=== PATIENT | male | born 1950 | race Caucasian/White ===

== ENCOUNTER 2019-01-26 10:14 | Emergency (ER) | payer MEDICARE ==
--- OUTSIDE RECORDS SUMMARY | 2019-01-26 10:19 | XMS REPORT | Continuity of Care Document ---
:1950 External Reference #:[id number] Author Name Heidi Aviles Care Team Providers Name Role Phone Azar Tang III, MD Primary Care Physician Unavailable Problems Active Problems Provider Date Neurological disorder with type 2 Benjamín Samano M.D.,FACP Onset: 2011 diabetes mellitus Peripheral vascular disease Benjamín Samano M.D.,FACP Onset: 01/16/2010 Tobacco user Benjamín Samano M.D.,FACP Onset: 01/16/2010 Lipoma of skin Benjamín Samano M.D.,FACP Onset: 01/24/2010 Mixed hyperlipidemia Benjamín Samano M.D.,FACP Onset: 08/04/2010 Acute bronchitis Curtis Wheeler M.D. Onset: 04/22/2012 Inactive Problems Type II diabetes mellitus uncontrolled Benjamín Samano M.D.,FACP Onset: Inactive: 01/03/2012 Pure hypercholesterolemia Benjamín Samano M.D.,FACP Onset: 01/24/2010 Inactive: 01/03/2012 Social History Type Date Description Comments Sex Unknown Marital Status Lives With Spouse Occupation Unemployed Cigarette Use Pack Years - 40 Tobacco Use Start: Unknown Current Cigarette Smoker 1 Pack Daily Smoking Status Reviewed: 12/31/18 Current Cigarette Smoker 1 Pack Daily ETOH Use Denies alcohol use Recreational Drug Use Denies Drug Use Tobacco Use Start: Unknown End: Patient is a former smoker quit 2011 Unknown Exercise Type/Frequency Does not exercise Currently Active Patient is currently sexually active Allergies, Adverse Reactions, Alerts Active Allergies Reaction Severity Comments Date Bee Sting 08/04/2009 Medications Active Medications SIG Qnty Indications Ordering Provider Date Novolin N 50 units in a.m. Azar Tang, 12/31/2018 100Unit/ML and 40 units at M.D. Suspension night Novolin R 18 units bid AzarRamsey, 12/31/2018 100Unit/ML M.D. Solution Omeprazole 1 by mouth every 30caps K21.9 Azar Tang, 12/31/2018 40mg day M.D. Capsules DR Everett 1 tab by mouth Unknown 500mg Chewtabs four times a day as needed History Medications Glipizide 1 ab bid 180tabs 250.02 Curtis Wheeler, 04/22/2012 - 10mg M.D. 12/31/2018 Tablets Levaquin 1 po qd 10tabs 466.0 Curtis Wheeler, 04/22/2012 - 500mg M.D. 05/23/2012 Tablets Byetta inject s/c bid, 250.02 Benjamín Cabral 12/26/2011 - 5mcg/0.02ML before morning [facility] 04/22/2012 Solution and evening meals Byetta inject 1 dose 1units 250.02 Benjamín Cabral 12/25/2011 - 10mcg/0.04ML under the skin [facility] Samano,[facility] 12/26/2011 Solution twice daily as directed Novofine [id number] use daily as 100units Benjamín Cabral 12/10/2011 - directed with [facility]cia Samano,[facility] 12/31/2018 30G X 8 mm Sana nye Naproxen 1 po bid prn 60tabs 840.4 Benjamín Cabral 11/22/2011 - 500mg [facility] 07/09/2012 Tablets Cymbalta 1 po qd 30caps 250.62 Benjamín Cabral 08/17/2011 - 60mg Caps Marcia Samano,FACP 07/09/2012 DR Kitty Nye 1.2 mg sc qd 1mon 250.02 Benjamín Cabral 08/17/2011 - 18mg/3ML Marcia Samano,FACP 12/25/2011 Solution Metformin HCL take 1 tablet 60tabs 250.02 Benjamín Cabral 08/17/2011 - twice a day Marcia Samano,[facility] 12/31/2018 1000mg Tablets Cialis qd prn 3tabs 607.84 Benjamín Cabral 11/10/2010 - 10mg Tablets Marcia Samano,[facility] 04/22/2012 Gabapentin Take 1 Cap 3 150caps 250.62 Benjamín Cabral 11/10/2010 - 100mg Times A Day And Marcia Samano,[facility] 08/17/2011 Capsules Take 2 Caps AT Bedtime For 1 Week, Then Take 2 Caps 3 Times A Day And Take 3 Caps AT Bedtime Glyburide take 2 tablet 180tabs 250.02 Benjamín Cabral 08/04/2010 - 2.5mg twice a day Marcia Samano,[facility] 04/22/2012 Tablets Simvastatin take 1 tablet at 90tabs 272.0 Azar Tang, 08/04/2010 - 40mg bedtime Marcia 07/09/2012 Tablets Janumet 1 po bid 60tabs 250.02 Benjamín Cabral 07/14/2010 - 50-1000mg Marcia Samano,[facility] 08/17/2011 Tablets Metformin HCL 1 po bid 60tabs 250.02 Benjamín Cabral 05/26/2010 - Marcia Samano,[facility] 07/14/2010 1000mg Tablets Victoza 0.6 mg sc qd for 1mon Benjamín Cabral 05/26/2010 - 18mg/3ML 1 wk, then 1.2 Marcia Samano,[facility] 07/14/2010 Solution mg qd Novofine [id number] sc bid 60units Benjamín Cabral 05/26/2010 - Marcia Samano,[facility] 07/14/2010 32G X 6 mm [facility] Janumet take 1 tablet 60tabs 250.02 Benjamín Cabral 01/24/2010 - 50-1000mg twice a day Marcia Samano,[facility] 05/26/2010 Tabs Gustabo Microlet qd prn 50units Benjamín Cabral 01/24/2010 - Lancets Marcia Samano,[facility] 12/31/2018 Misc Gustabo Contour Blood qd and prn 50units Benjamín Cabral 01/24/2010 - Glucose Test Strips Marcia Samano,[facility] 12/31/2018 Strips Aspirin 1 po qd 50tabs 250.02 Benjamín Cabral 01/24/2010 - 81mg Marcia Samano,[facility] 12/31/2018 Tablets Bupropion HCL ER po qam for 1 wk, 60tabs 305.1 Benjamín Cabral 01/24/2010 - then qam, qnoon Marcia Samano,[facility] 03/07/2010 150mg Tablets ER 12HR Simvastatin 1 po qpm 90tabs 272.0 Benjamín Cabral 01/24/2010 - 20mg Marcia Samano,[facility] 08/04/2010 Tablets Gabapentin 2 qhs 60caps 250.02 Benjamín Cabral 01/24/2010 - 300mg Marcia Samano,[facility] 03/07/2010 Capsules Gabapentin 1 po QHS 30caps 250.02 Benjamín Cabral 01/16/2010 - 300mg Marcia Samano,[facility] 01/24/2010 Capsules Chantix starter pack as 1mon 305.1 Benjamín Cabral 01/16/2010 - 0.5mg X 11 directed Marcia Samano,[facility] 01/24/2010 & 1 mg X Tablets Lisinopril 1 po qd 30tabs 250.00 Adam, 08/04/2009 - 10mg Marcia Juarez 01/16/2010 Tablets 401.9 Lantus 30 units sq q hs 1monthsu Ann Medina, - 100Unit/ML M.D. 01/16/2010 Solution Humalog sliding scale 10ml Ann Medina, - 100Unit/ML M.D. 01/16/2010 Solution Novolin 70/30 Unknown - 12/31/2018 (70-30)100Unit/ML Suspension Immunizations CPT Code Status Date Vaccine Reaction Lot # [id number] Given 12/31/2018 Pneumococcal Conjugate shot tolerated well, no [id number] Vaccine 13 Valent For immediate reaction Intramuscular Use [id number] Given 08/17/2011 Fluzone Vaccine 40949 Given 05/26/2010 Pneumonia Vaccine [id number] Given 05/09/2010 Influenza Virus 3Yrs & Over Vital Signs Date Vital Result Comment 12/31/2018 10:07am Height 69 inches 5'9" Weight 198.00 lb Heart Rate 100 /min BP Systolic Sitting 151 mmHg BP Diastolic Sitting 79 mmHg BMI (Body Mass Index) 29.2 kg/m2 07/09/2012 4:37pm Height 69 inches 5'9" Weight 169.00 lb Heart Rate 91 /min auto pulse BP Systolic Sitting 152 mmHg auto cuff BP Diastolic Sitting 71 mmHg auto cuff BMI (Body Mass Index) 25.0 kg/m2 04/22/2012 10:47am Height 69.25 inches 5'9.25" Weight 171.00 lb Heart Rate 86 /min BP Systolic Sitting 140 mmHg BP Diastolic Sitting 76 mmHg Body Temperature 97.8 F BMI (Body Mass Index) 25.1 kg/m2 11/22/2011 9:56am Height 69.25 inches 5'9.25" Weight 166.00 lb Heart Rate 90 /min BP Systolic Sitting 126 mmHg BP Diastolic Sitting 74 mmHg BMI (Body Mass Index) 24.3 kg/m2 08/17/2011 9:14am Height 69.25 inches 5'9.25" Weight 167.00 lb Heart Rate 92 /min BP Systolic Sitting 136 mmHg BP Diastolic Sitting 83 mmHg BMI (Body Mass Index) 24.5 kg/m2 11/10/2010 11:54am Weight 174.00 lb Heart Rate 78 /min BP Systolic Sitting 120 mmHg BP Diastolic Sitting 76 mmHg 08/04/2010 10:09am Weight 166.00 lb Heart Rate 82 /min BP Systolic Sitting 114 mmHg BP Diastolic Sitting 74 mmHg 05/26/2010 9:38am Weight 166.00 lb Heart Rate 114 /min BP Systolic Sitting 140 mmHg BP Diastolic Sitting 82 mmHg O2 % BldC Oximetry 97 % 03/07/2010 8:42am Weight 166.00 lb Heart Rate 90 /min BP Systolic Sitting 124 mmHg BP Diastolic Sitting 74 mmHg 01/24/2010 9:38am Heart Rate 76 /min BP Systolic Sitting 132 mmHg BP Diastolic Sitting 70 mmHg 01/16/2010 10:59am Height 70 inches 5'10" Weight 160.00 lb Heart Rate 72 /min BP Systolic Sitting 120 mmHg BP Diastolic Sitting 74 mmHg BMI (Body Mass Index) 23.0 kg/m2 08/04/2009 8:44am Height 70 inches 5'10" Weight 173.00 lb Heart Rate 100 /min BP Systolic Sitting 140 mmHg BP Diastolic Sitting 90 mmHg BMI (Body Mass Index) 24.8 kg/m2 Results Test Date Facility Test Result H/L Range Note Laboratory test 12/31/2018 [employer] In House Hemoglobin A1c 13.4 High 5-7 finding Comp Metabolic 05/23/2012 [facility] Sodium 138 mmol/L 133- [address] [place] [address] [phone] Potassium 4.3 mmol/L 3.5-5.0 Chloride 100 mmol/L Low 101-111 Co2 Carbon Dioxide 31.0 mmol/L 22-32 Anion Gap 7.0 mmol/L 2-11 Glucose 207 mg/dL High 70-100 Blood Urea Nitrogen 8 mg/dL 6-24 Creatinine 0.80 mg/dL 0.50-1.40 BUN/Creatinine Ratio 10.0 8-20 Calcium 9.2 mg/dL 8.1-9.9 Total Protein 6.3 g/dL 6.2-8.1 Albumin 3.8 g/dL 3.6-5.4 Globulin 2.5 g/dL 2-4 Albumin/Globulin Ratio 1.5 1-3 Total Bilirubin 0.8 mg/dL 0.4-1.5 Alkaline Phosphatase 92 U/L 30-110 Alt 52 U/L 14-54 Ast 29 U/L 12-42 Egfr Non- 98.9 >60 Egfr 127.2 >60 1 Lipid Panel - 05/23/2012 [facility] Creatine Kinase 51 U/L 0- [address] [place] [address] [phone] Lipid Profile 05/23/2012 [facility] Triglycerides 206 mg/dL High 40-200 (Trig/Chol/HDL [address] ) [place], [place] [id number] [phone] Cholesterol 206 mg/dL High Less than 200 HDL Cholesterol 28 mg/dL Low 40-60 2 Cholesterol/HDL Ratio 7.4 Average High 1-4.44 LDL Cholesterol 136.8 mg/dL High Less Than 100 3 Urine Microalbumin 04/22/2012 [facility] Ur Microalbumin 161.0 mg/L [address] (Mg/L) [place], [place] [id number] [phone] Urine Creatinine 81.7 mg/dL Urine Microalbumin/Creatinine 197.1 UG/MG High Less Than 31 Laboratory test 04/22/2012 [employer] In House Hemoglobin A1c 9.0 High 5-7 finding Laboratory test 11/22/2011 [employer] Member In House Hemoglobin A1c 7.3 High 5-7 finding Laboratory test 08/17/2011 [employer] Member In House Hemoglobin A1c 8.2 High 5-7 finding Laboratory test 08/04/2010 [employer] Faculty Member In House Hemoglobin A1c 11.0 High 5-7 finding Laboratory test 05/09/2010 [facility] Hemoglobin A1c 10.4 % High Less Than [address] [place] [address] [phone] Lipid Panel - JFM 05/09/2010 [facility] CPK (Creatine 68 U/L 0-[address] Kinase) [place] [address] [phone] Lipid Profile 05/09/2010 [facility] Triglyceride 166 mg/dL 40 -200 (Trig/Chol/HDL) [address] [place] [address] [phone] Cholesterol 160 mg/dL Less Than 200 6 High Density Lipoprotein 30 mg/dL Low 40-60 7 Cholesterol/HDL Ratio 5.33 AVERAGE High 1-4.97 Low Density Lipoprotein 97 mg/dL Less Than 100 8 Comp Metabolic Panel 05/09/2010 [facility] Sodium 136 mmol/L 135-[address] [place] [address] [phone] Potassium 4.2 mmol/L 3.5-5.0 Chloride 101 mmol/L 101-111 Co2 (Carbon Dioxide) 28.0 mmol/L 22-32 Anion Gap 7.0 mmol/L 2-11 9 Glucose 259 mg/dL High 70-100 10 BUN 9 mg/dL 6-24 Creatinine 0.80 mg/dL 0.50-1.40 One Over Creatinine 1.20 BUN/Creatinine Ratio 11.3 8-20 Calcium 9.4 mg/dL 8.1-9.9 Total Protein 6.9 GM/DL 6.2-8.1 Albumin 4.1 GM/DL 3.6-5.4 Globulin 2.8 GM/DL 2-4 Albumin/Globulin Ratio 1.5 1-3 Bilirubin Total 0.9 mg/dL 0.4-1.5 11 Alkaline Phosphatase 94 U/L 39-117 Alt (SGPT) 34 U/L 17-63 Ast (Sgot) 22 U/L 12-42 eGFR Non- 105.9 > 60 eGFR 128.1 > 60 12 CBC With 01/16/2010 [facility] White Blood 6.6 CUMM 4.8-10.8 Electronic Diff [address] [place] [address] [phone] Red Cell Count 6.00 CUMM 4.6-6.2 Hemoglobin 17.9 g/dL 14.0-18.0 Hematocrit 52 % 42-52 Mean Corpuscular Volume 86 um3 80-94 Mean Corpuscular Hemoglob 30 pg 27-31 Mean Corpuscular HGB Cone 35 g/dL 32-36 Redcell Distribution WDTH 13 % 10.5-15 Platelet Count 174 CUMM 150-450 Mean Platelet Volume 7.3 um3 Low 7.4-10.4 Gran % 53.3 % 38-83 Lymph % 40.2 % 25-47 Mononuclear % 5.3 % 1-9 Eosinophil % 0.8 % 0-6 Basophil % 0.4 % 0-2 Abs Lymphs 2.6 1.0-4.8 Abs Mononuclear 0.3 0-0.8 Absolute Neutrophil Count 3.5 1.5-7.7 Abs Eosinophils 0.1 0-0.6 Abs Basophils 0 0-0.2 Urinalysis W/Microscopic 01/16/2010 [facility] Ua Color YELLOW Yellow [address] [place] [address] [phone] Appearance-Urine CLEAR Clear Specific [place]-Ur 1.039 High 1.010-1.030 Esterase-Urine NEGATIVE Negative Nitrite NEGATIVE Negative [id number] NEGATIVE Negative Protein-Urine NEGATIVE Negative PH-Urine 5.0 5-9 Blood-Urine NEGATIVE Negative Ketones-Urine NEGATIVE Negative Bilirubin-Ur NEGATIVE Negative Glucose-Urine 3+ Abnormal Negative RBC-Urine NONE SEEN 0-2 Epith Cells-Ur NONE None Bacteria-Urine NONE SEEN None Urine Microalbumin 01/16/2010 [facility] Microalbumin 25.0 mg/L Random [address] (MG/L) [place] [address] [phone] Urine Creatinine 47.44 mg/dL Satnam Alb/Creatinine Ratio 52.6 UG/MG High Less Than 30 13 Comp Metabolic Panel 01/16/2010 [facility] Sodium 135 mmol/L 135-[address] [place] [address] [phone] Potassium 4.1 mmol/L 3.5-5.0 Chloride 100 mmol/L Low 101-111 Co2 (Carbon Dioxide) 28.0 mmol/L 22-32 Anion Gap 7.0 mmol/L 2-11 14 Glucose 359 mg/dL High 70-100 15 BUN 9 mg/dL 6-24 Creatinine 0.80 mg/dL 0.50-1.40 One Over Creatinine 1.20 BUN/Creatinine Ratio 11.3 8-20 Calcium 9.4 mg/dL 8.1-9.9 16 Total Protein 6.9 GM/DL 6.2-8.1 Albumin 4.0 GM/DL 3.6-5.4 Globulin 2.9 GM/DL 2-4 Albumin/Globulin Ratio 1.4 1-3 Bilirubin Total 0.7 mg/dL 0.4-1.5 17 Alkaline Phosphatase 131 U/L High 39-117 Alt (SGPT) 27 U/L 17-63 Ast (Sgot) 13 U/L 12-42 eGFR Non- 105.9 > 60 eGFR 128.1 > 60 18 Lipid Profile 01/16/2010 [facility] Triglyceride 244 mg/dL High 40-200 (Trig/Chol/HDL) [address] [place] [address] [phone] Cholesterol 243 mg/dL High Less Than 200 19 High Density Lipoprotein 32 mg/dL Low 40-60 20 Cholesterol/HDL Ratio 7.59 AVERAGE High 1-4.97 Low Density Lipoprotein 162 mg/dL High Less Than 100 21 Laboratory test 01/16/2010 [facility] PSA,Diagnostic 1.56 NG/ML 0-4 22 finding [address] [place] [address] [phone] Hemoglobin A1c 14.5 % High Less Than 6.0 23 1 Because ethnic data is not always readily available, this report includes an eGFR for both -Americans and non- Americans. The National Kidney Disease Education Program (NKDEP) does not endorse the use of the MDRD equation for patients that are not between the ages of 18 and 70, are , have extremes of body size, muscle mass, or nutritional status, or are non- or non-. According to the National Kidney Foundation, irrespective of diagnosis, the stage of the disease is based on the level of kidney function: Stage Description GFR(mL/min/1.73 m(2)) 1 Kidney damage with normal or decreased GFR 90 2 Kidney damage with mild decrease in GFR 60-89 3 Moderate decrease in GFR 30-59 4 Severe decrease in GFR 15-29 5 Kidney failure <15 (or dialysis) 2 HDL Interpretation: Undesirable: High Risk: Less than 40 MG/DL Desirable: Low Risk: Greater than 60 MG/DL 3 LDL Interpretation: Low Risk Optimal Level: LDL Less than 100 MG/DL Near or Above Optimal: LDL 100-129 MG/DL Borderline High Risk: LDL 130-159 MG/DL High Risk: LDL 160-189 MG/DL Very High Risk: LDL Greater than 189 MG/DL 4 Microalbuminuria in a random sample is defined as: Microalbumin/Creatinine ratio of 30-299 ug/mg. 5 THERAPEUTIC TARGET FOR THE TREATMENT OF DIABETES MELLITUS PATIENTS IS <7% HBA1C, AND IN SELECTIVE PATIENTS <6.0%. PLEASE REFER TO [place] [employer] DIABETIC CARE GUIDELINES FOR FURTHER INFORMATION. 6 CHOLESTEROL INTERPRETATION: Desirable: Less than 200 MG/DL Borderline-High Risk: 200-239 MG/DL High-Risk: 240 MG/DL and over 7 HDL INTERPRETATION: Undesirable: High Risk: Less than 40 MG/DL Desirable: Low Risk: Greater than 60 MG/DL 8 LDL INTERPRETATION: Low Risk Optimal Level: LDL Less than 100 MG/DL Near or Above Optimal: LDL 100-129 MG/DL Borderline High Risk: LDL 130-159 MG/DL High Risk: LDL 160-189 MG/DL Very High Risk: LDL Greater than 189 MG/DL 9 Anion gap measurement may be of limited value in the presence of any alkalosis, especially in a combined acid base disorder. . 10 Note change in reference range as of 02/05/08. The change was based on recommendations from the [employer]. 11 A metabolite of Naproxen, O-desmethylnaproxen, has been shown to interfere with the Jendrassik-Richard method for measuring total bilirubin. Samples from patients who have taken Naproxen have shown spurious elevation in total bilirubin levels. 12 Because ethnic data is not always readily available, this report includes an eGFR for both -Americans and non- Americans. The National Kidney Disease Education Program (NKDEP) does not endorse the use of the MDRD equation for patients that are not between the ages of 18 and 70, are , have extremes of body size, muscle mass, or nutritional status, or are non- or non-. According to the National Kidney Foundation, irrespective of diagnosis, the stage of the disease is based on the level of kidney function: Stage Description GFR(mL/min/1.73 m(2)) 1 Kidney damage with normal or decreased GFR 90 2 Kidney damage with mild decrease in GFR 60-89 3 Moderate decrease in GFR 30-59 4 Severe decrease in GFR 15-29 5 Kidney failure <15 (or dialysis) 13 MICROALBUMINURIA IN A RANDOM SAMPLE IS DEFINED : MICROALBUMIN/CREATININE RATIO OF 30-299 ug/mg. . 14 Anion gap measurement may be of limited value in the presence of any alkalosis, especially in a combined acid base disorder. . 15 Note change in reference range as of 02/05/08. The change was based on recommendations from the [employer]. 16 Please note change in reference range effective 07 . 17 A metabolite of Naproxen, O-desmethylnaproxen, has been shown to interfere with the Jendrassik-Witherbee method for measuring total bilirubin. Samples from patients who have taken Naproxen have shown spurious elevation in total bilirubin levels. 18 Because ethnic data is not always readily available, this report includes an eGFR for both -Americans and non- Americans. The National Kidney Disease Education Program (NKDEP) does not endorse the use of the MDRD equation for patients that are not between the ages of 18 and 70, are , have extremes of body size, muscle mass, or nutritional status, or are non- or non-. According to the National Kidney Foundation, irrespective of diagnosis, the stage of the disease is based on the level of kidney function: Stage Description GFR(mL/min/1.73 m(2)) 1 Kidney damage with normal or decreased GFR 90 2 Kidney damage with mild decrease in GFR 60-89 3 Moderate decrease in GFR 30-59 4 Severe decrease in GFR 15-29 5 Kidney failure <15 (or dialysis) 19 CHOLESTEROL INTERPRETATION: Desirable: Less than 200 MG/DL Borderline-High Risk: 200-239 MG/DL High-Risk: 240 MG/DL and over 20 HDL INTERPRETATION: Undesirable: High Risk: Less than 40 MG/DL Desirable: Low Risk: Greater than 60 MG/DL 21 LDL INTERPRETATION: Low Risk Optimal Level: LDL Less than 100 MG/DL Near or Above Optimal: LDL 100-129 MG/DL Borderline High Risk: LDL 130-159 MG/DL High Risk: LDL 160-189 MG/DL Very High Risk: LDL Greater than 189 MG/DL 22 * SERUM LEVELS OF PSA MEASURED USING THE DONNA ADEA Cutters ACCESS HYBRITECH IMMUNOASSAY SHOULD NOT BE INTERPRETED ABSOLUTE EVIDENCE OF THE PRESENCE OR ABSENCE OF DISEASE. THE PSA VALUE SHOULD BE USED IN CONJUNCTION WITH OTHER PERTINENT CLINICAL DIAGNOSTIC PROCEDURES. 23 THERAPEUTIC TARGET FOR THE TREATMENT OF DIABETES MELLITUS PATIENTS IS <7% HBA1C, AND IN SELECTIVE PATIENTS <6.0%. PLEASE REFER TO [place] [employer] DIABETIC CARE GUIDELINES FOR FURTHER INFORMATION. Procedures Date Code Description Status 09/27/2005 [id number] Colonoscopy Completed Encounters Type Date Location Provider Dx Diagnosis Office Visit 04/22/2012 [facility] Internal Curtis Wheeler, 250.02 Diabetes Mellitus 10:40a Wes Jimenez M.D. W/O Compl Type II Or Unspec Type Uncontrol 466.0 Bronchitis Acute 272.2 Hyperlipidemia Mixed 305.1 Tobacco Use Disorder Office Visit 11/22/2011 10:10a [facility] Internal Benjamín Cabral 250.02 Estrada Samano M.D.,FACP Mellitus W/O Ccmob Compl Type II Or Unspec Type Uncontrol 305.1 Tobacco Use Disorder 840.4 Sprains & Strains Rotator Cuff (Capsule) Office Visit 08/17/2011 9:20a [facility] Internal Benjamín Cabral 250.02 Estrada Samano M.D.,FACP Mellitus W/O Ccmob Compl Type II Or Unspec Type Uncontrol 250.62 Diabetes W/ Neurological Manifestations Type II Uncontrolled v04.81 Need For Prophylactic Vaccination & Inoculation/Influenza Office Visit 11/10/2010 11:40a DO Not Use Richard Cabral 250.02 Diabetes AT Saida Samano M.D.,FACP Mellitus W/O Compl Type II Or Unspec Type Uncontrol 272.2 Hyperlipidemia Mixed 305.1 Tobacco Use Disorder 607.84 Impotence Organic Origin Office Visit 08/04/2010 9:40a DO Not Use Richard Cabral 250.02 Diabetes AT Saida Samano M.D.,FACP Mellitus W/O Compl Type II Or Unspec Type Uncontrol 272.2 Hyperlipidemia Mixed Office Visit 05/26/2010 9:40a DO Not Use [employer]unct [employer] Faculty Member Benjamín Cabral 250.02 Diabetes AT Saida Samano M.D.,FACP Mellitus W/O Compl Type II Or Unspec Type Uncontrol 272.0 Hypercholesterolemia Pure 305.1 Tobacco Use Disorder V03.82 Streptococcus Pneumoniae Vaccination Spec Other Office Visit 03/07/2010 8:40a DO Not Use [employer]unct [employer] Faculty Member Benjamín Cabral 250.02 Diabetes AT Saida Samano M.D.,FACP Mellitus W/O Compl Type II Or Unspec Type Uncontrol 272.0 Hypercholesterolemia Pure 305.1 Tobacco Use Disorder Office Visit 01/24/2010 9:40a DO Not Use [employer]unct [employer] Faculty Member Benjamín Cabral 250.02 Diabetes AT Saida Samano M.D.,FACP Mellitus W/O Compl Type II Or Unspec Type Uncontrol 305.1 Tobacco Use Disorder 214.1 Lipoma Other Skin And Subcutaneous Tissue 272.0 Hypercholesterolemia Pure Office Visit 01/16/2010 10:20a DO Not Use [employer]unct [employer] Faculty Member Benjamín Cabral 250.02 Diabetes AT Saida Samano M.D.,FACP Mellitus W/O Compl Type II Or Unspec Type Uncontrol 443.9 Peripheral Vascular Disease Unspec 780.52 Insomnia Unspecified 305.1 Tobacco Use Disorder 727.62 Ruptured Tendon Biceps (Long Head) Office Visit 08/04/2009 9:00a DO Not Use Adjunct Communications Faculty Member Adam, 250.00 Diabetes AT Saida Juarez M.D. Mellitus W/O Compl Type II Or Unspec Controlled 388.30 Tinnitus Unspecified 381.29 Otitis Media Chronic Media Other 443.89 Peripheral Vascular Disease Other V04.81 Need For Prophylactic Vaccination & Inoculation/Influenza 401.9 Hypertension Unspec 357.2 Polyneuropathy In Diabetes Plan of Treatment 12/31/2018 - Azar Tang M.D.E11.42 Type 2 diabetes mellitus with diabetic polyneuropathyComments:Chronic poorly controlled DM, currently on insulin Rx with A1c of 13.4. (+) complications of retinopathy, neuropathy, past (+) microalbumin, elevated lipids. Pt urged to recheck with his eye doctor for ? recent bleeding in his eye. Referrals to resume foot care and endocrine eval for DM management also entered. Recheck fasting labs. Dental re -eval for his ? chronic infection also advised as soonas possibleReferral: August Pereyra MD, OphthalmologySmoolca, Socorro Headley DPM, PodiatristCochShon MD, WeltekgrrtmyzQ17.9 Gastro-esophageal reflux disease without esophagitisNew Medication:Omeprazole 40 mg - 1 by mouth every dayComments: Chronic GERD sx for ? decades with newer solid food dysphagia sx. No recent GI evals. Check labs and start daily Omeprazole. GI referral entered for eval, EGD. Pt also due for a repeat colon exam, but he did have one around 3 years ago per ptReferral:Raymond Fofana MD, MybfgfptzghthewzQ53.00 Dyspnea, unspecifiedNew Orders:EKG, Ordered: 12/31/18Echocardiogram, Ordered: Comments:Chronic dyspnea on exertion over the past 3 years. No SOB at rest, wheezing, cough. No chest pains/pressure. Labs, cardiac echo advised; ? diabetic [id number] Mixed hyperlipidemiaComments:Cholesterol and TG both up slightly with past labs; diet Rx only so farR03.0 Elevated blood- pressure reading, without diagnosis of hypertComments:No hx HTN per pr; 2012 labs with (+) microalbumin. Recheck labs and follow BPs. EILEEN Rx indicated with (+) [id number] Encounter for screening for other viral diseases
[2019-01-26 10:21] VITALS: BP 159/82
--- NOTE | 2019-01-26 10:23 | UC ---
Lower Extremity/Ankle HPI - HPI Summary HPI Summary: 68 yo male presents accompanied by his with a right leg complaint. He tells me that 2 days ago his noticed his right leg was swollen and his right big toe was very red. Pt noted he had pain in both and is unable to move his right big toe. He is a diabetic, but does not check his glucose and admits that he is generally non-compliant with medications and doctor visits. He has never seen podiatry or endocrinology, but states is supposed to be getting set up for both of these with his PCP. He is unsure how long his toe has been red and swollen. Denies fever, chills, or specific injury. - History of Current Complaint Chief Complaint: UCLowerExtremity Stated Complaint: LEG COMPLAINT Time Seen by Provider: 01/26/19 10:22 Hx Obtained From: Patient, Family/Disassembler Product Onset/Duration: Sudden Onset Severity Initially: Moderate Severity Currently: Severe Pain Intensity: 9 Pain Scale Used: 0-10 Numeric - Allergies/Home Medications Allergies/Adverse Reactions: Allergies Allergy/AdvReac Type Severity Reaction Status Date / Time fluoxetine [From Prozac] Allergy unk Verified 01/26/19 10:17 PMH/Surg Hx/FS Hx/Imm Hx Endocrine History: Diabetes Cardiovascular History: Hypertension - Surgical History Surgical History: Yes Surgery Procedure, Year, and Place: Knee surgery, left eye popped out and put back in at age 18. - Family History Known Family History: Positive: Diabetes - Social History Lives: With Family Alcohol Use: Rare Substance Use Type: None Smoking Status (MU): Former Smoker Review of Systems All Other Systems Reviewed And Are Negative: Yes Constitutional: Positive: Negative Skin: Positive: Other - Right calf swelling and pain. Right great toe redness and swelling. Respiratory: Positive: Negative Cardiovascular: Positive: Negative Gastrointestinal: Positive: Negative Genitourinary: Positive: Negative Neurovascular: Positive: Negative Musculoskeletal: Positive: Negative Neurological: Positive: Negative Psychological: Positive: Negative Physical Exam - Summary Physical Exam Summary: GENERAL: NAD. WDWN. No pain distress. SKIN: RIGHT LOWER LEG: Mild edema and scatter varicose veins. Moderate TTP. No open wounds or erythema. RIGHT GREAT TOE: Moderate edema and erythema. TTP. 5mm Scab vs necrotic tissue to lateral aspect of toe. RIGHT FOOT: Moderate edema entire foot. NECK: Supple. Nontender. No lymphadenopathy. CHEST: No accessory muscle use. Breathing comfortably and in no distress. CV: Pulses intact. Cap refill <2seconds MSK: RIGHT great toe: very limited ROM due to pain and swelling. Positive jose sign right lower leg. NEURO: Alert. PSYCH: Age appropriate behavior. Triage Information Reviewed: Yes Vital Signs: Initial Vital Signs Temp 97.8 F 01/26/19 10:18 Pulse 93 01/26/19 10:18 Resp 17 01/26/19 10:18 BP 159/82 01/26/19 10:18 Pulse Ox 100 01/26/19 10:18 Vital Signs Reviewed: Yes Lower Extremity Course/Dx - Course Course Of Treatment: POC glucose 231. XR toe:IMPRESSION: OSTEOARTHRITIS. NO APPRECIABLE EROSION OR PERIOSTEAL REACTION. PLAIN RADIOGRAPH FINDINGS OF OSTEOMYELITIS ARE RELATIVELY LATE FINDINGS. IF THERE IS PERSISTENT CLINICAL CONCERN FOR OSTEOMYELITIS, RECOMMEND CORRELATION WITH FOLLOWUP IMAGING, THREE-PHASE BONE SCANNING, WHITE BLOOD CELL SCAN, AND/OR MRI OF THE AFFECTED REGION. US right leg: IMPRESSION: 1. NO EVIDENCE FOR DEEP VENOUS THROMBOSIS. 2. A RIGHT INGUINAL LYMPH NODE IS SLIGHTLY ENLARGED MEASURING 1.4 CM IN SHORT AXIS. IT HAS NO OTHER SUSPICIOUS SONOGRAPHIC FEATURES. CLOSE CLINICAL FOLLOW-UP IS RECOMMENDED. Discussed results with pt. His right great toe appears to have been cellulitic for quite some time. He has significant decreased ROM at the toe and I am concerned for osteomyelitis given his poorly controlled diabetes. I discussed this with the pt and his with him and advised him to seek further evaluation in the ER - they were agreeable to this and will drive him. - Differential Dx/Diagnosis Provider Diagnosis: Right leg pain, Cellulitis of great toe, right Discharge - Sign-Out/Discharge Documenting (check all that apply): Patient Departure All imaging exams completed and their final reports reviewed: Yes - Discharge Plan Condition: Stable Disposition: HOME-RECOMMEND TO ED Referrals: Rakesh Hernandez MD [Primary Care Provider] - Additional Instructions: Please go to the ER for further evaluation of your leg swelling and infected toe - Billing Disposition and Condition Condition: STABLE Disposition: Home-Recommend to ED
== END 2019-01-26 12:21 | disposition home health service (06) ==
LOC: UCEAST 10:14
DX: L03.031 Cellulitis of right toe (principal); E11.9 Type 2 diabetes mellitus without complications; I10 Essential (primary) hypertension; Z87.891 Personal history of nicotine dependence
CPT/HCPCS: 99212; G0463

== ENCOUNTER 2019-01-26 12:58 | Emergency (ER) | payer MEDICARE ==
[2019-01-26 15:16] VITALS: BP 162/91
== END 2019-01-26 16:35 | disposition home or self-care (01) ==
LOC: ED 12:58
DX: R60.0 Localized edema (principal); Z53.21 Procedure and treatment not carried out due to patient leaving prior to being seen by health care provider

== ENCOUNTER 2019-02-12 19:44 | Observation (INO) | payer MEDICARE ==
--- OUTSIDE RECORDS SUMMARY | 2019-02-12 19:55 | XMS REPORT | Summary of Care ---
:1950 Author Organization [facility] Address [address] [address] Care Team Providers Name Role Phone None, [place] Primary Care Provider Unavailable Reason for Referral (Routine) Status Reason Specialty Diagnoses / Procedures Referred By Contact Referred To Contact Saud Whaley MD [address] [address] Scheduling Instructions Reason for Consult: Princess Patient Background: Pawel Collier is a 68-y.o. male with uncontrolled DM is admitted with foot ulcer. MRI ruled out OM but shows abscesses. Please give recommendations about antibiotics (Routine) Status Reason Specialty Diagnoses / Procedures Referred By Contact Referred To Contact Saud Whaley MD [address] [address] Reason for Visit Reason Comments Foot Pain Auth/Cert Status Reason Specialty Diagnoses / Procedures Referred By Contact Referred To Contact Encounter Details Date Type Department Care Team Description 01/27/2019 - Hospital Encounter [facility] 6 [facility] Jeb Lopes MD [address] [address] Inpatient 02/02/2019 1 Romero Moore MD [address] [address] [address] [address] Gaston Atkins MD [address] [address] [phone] Saud Whaley MD [address] [facility] [place] [address] [phone] Crystal Bliss MD [address] [facility] [place] [address] [phone] Saud Bonilla MD 1 [facility] [address] [phone] Allergies No Known Allergiesdocumented as of this encounter (statuses as of 02/03/2019) Medications Medication Sig Dispensed Refills Start Date End Date Status Aspirin 81 MG Oral Take 81 mg by 0 Active Tab mouth DAILY. NPH insulin, Inject 35-50 0 Active INTERMEDIATE - Units beneath Acting, (NOVOLIN the skin TWO N, HUMULIN N) 100 TIMES DAILY UNIT/ML BEFORE MEALS. Subcutaneous 50 units in Suspension a.m and 40 units in p.m REGULAR insulin, Inject 18 0 Active SHORT-Acting, Units beneath (HUMULIN R, the skin TWO NOVOLIN R) 100 TIMES DAILY UNIT/ML Injection BEFORE MEALS. Solution ropinirole Take 1 Tab by 30 Tab 1 11/28/2015 Active (REQUIP) 0.25 MG mouth EVERY Oral BEDTIME. TabIndications: Cramp of both lower extremities cephalexin Take 1 Cap by 40 Cap 0 02/02/2019 Active (KEFLEX) 500 MG mouth FOUR 9 Oral Cap TIMES DAILY for 10 days. lisinopril Take 1 Tab by 30 Tab 0 02/03/2019 Active (PRINIVIL, mouth DAILY 9 ZESTRIL) 5 MG Oral for 30 days. Tab metFORMIN Take 1 Tab by 60 Tab 0 02/02/2019 Active (GLUCOPHAGE) 500 mouth TWICE 9 MG Oral Tab DAILY for 30 days. gabapentin Take 1 Cap by 90 Cap 0 02/02/2019 Active (NEURONTIN) 100 MG mouth THREE 9 Oral Cap TIMES DAILY for 30 days. metFORMIN Take 500 mg 0 Discontinued (GLUCOPHAGE) 500 by mouth 9 (Reorder) MG Oral Tab TWICE DAILY. lisinopril Take 1 Tab by 30 Tab 1 11/28/2015 Discontinued (PRINIVIL, mouth DAILY. 9 (Dose Adjustment) ZESTRIL) 20 MG Oral TabIndications: Nephropathy Aspirin 500 MG Take 2,000 mg 0 Discontinued Oral Tab by mouth 9 (Duplicate Order) EVERY FOUR HOURS NEEDED. 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 documented as of this encounter Last Filed Vital Signs Vital Sign Reading Time Taken Comments Blood Pressure 156/74 02/02/2019 7:20 AM RN notified EDT Pulse 65 02/02/2019 7:20 AM EDT Temperature 36.6 02/02/2019 7:20 AM C (97.9 EDT F) Respiratory Rate 16 02/02/2019 7:20 AM EDT Oxygen Saturation 98% 02/02/2019 7:20 AM EDT Inhaled Oxygen Concentration - - Weight 89.1 kg (196 lb 8 oz) 01/27/2019 12:08 PM EDT Height 175.3 cm (5' 9") 01/27/2019 12:08 PM EDT Body Mass Index 29.02 01/27/2019 12:08 PM EDT documented in this encounter Discharge Summaries Saud Bonilla MD - 02/02/2019 5:26 PM EDT [facility] [address] [place] [address] Discharge Summary Patient ID: Pawel Collier [id number] 68-y.o. 1950 Admission date: 01/27/2019 Discharge date: 02/02/2019 Admitting Physician: Romero Mora MD Indication for Admission: Right foot cellulitis Principal Diagnosis: Right foot cellulitis and abscess Hospital Course: 68 year old male with history of poorly controlled diabetes mellitus type 2, diabetic neuropathy and HTN presented to the ER with complaints of redness, pain and swelling in right footfor 3 days, spreading from right great toe, associated with chills and rigors. On admission, labs showed normal white count and negative blood cultures. Xray of the right foot showed dorsal soft tissueswelling, but no evidence of fracture. Patient was started on iv vancomycin and zosyn. MRI of the foot showed peritoneal infection with small abscess at the great toe, but no evidence of osteomyelitis.Podiatry was consulted, who cleaned the right hallux ulcer area ( 0.5 cm x 0.5 cm x 2 mm depth) andtook cultures, but no I&D was done. Infectious disease team was consulted, who recommended discontinuing vancomycin. Would culture grew rare MSSA, following which antibiotic was changed to iv cefazolin. Patient showed gradual improvement in pain and swelling of the great toe. Antibiotic was switched to keflex upon discharge. Right foot cellulitis with abscess: -0.5 cm x 0.5 cm x 2 mm depth ulcerated area on right great toe -initially treated with vancomycin and zosyn -MRI showed small abscess at right great toe, but no evidence of osteomyelitis -wound cleaned by podiatry; cultures grew MSSA -antibiotic switched to iv cefazolin -pain and swelling showed gradual improvement -POLLO showed mild severity disease on right side -to take oral keflex 500 mg q6 hrs upon discharge (total of 14 day antibiotic course) -to follow up with ID clinic in 2 weeks Other medical problems managed in the hospital: Painful Onchomycosis x 10: -manual debridement of all toe nails done by podiatry on 01/29 Diabetes Mellitus type 2: -HgbA1C: 11.4 -continue with home regimen of insulin -continue with metformin -continue with gabapentin -to follow up with PCP in 1 week HTN: -continue taking lisinopril Discharged Condition: good Patient is seen and examined on the day of discharge. Patient has no acute complaints and is hemodynamically stable to be discharged to home. Consults: CONSULT TO GARMENT FITTER CONSULT TO GARMENT FITTER CONSULT TO PODIATRY CONSULT TO INFECTIOUS DISEASES CONSULT TO SURGICAL SUPERVISOR/CASE MANAGEMENT PER PROTOCOL Treatments: analgesia antibiotics DVT Prophylaxis Procedures: VL BODY MEASURE POLLO MULTIPLE Preliminary Result IMPRESSIONS: Indication: Right toe wound. Wound on top of left foot. History of diabetes mellitus. POLLO's, Dopplers, and PVR waveforms of the bilateral lower extremities were performed. PVR's of the bilateral thighs, calves, ankles, metatarsals, and 1st toe digits were all mild. Bilateral Dopplers of the dorsalis pedis and posterior tibial arteries were all biphasic. Right POLLO: DP was non-compressible. PT: 0.88 Left POLLO: 1.13 There is no previous study available for comparison. POLLO VALUE: Over 1.3 (Non-Compressible), .90 - 1.3 (Normal), .89 - .60 (Mild), .59 - .40 (Moderate), and under .40 (Severe) MR LOWER EXTREMITY W AND WO CONTRAST RIGHT Final Result 1. No osteomyelitis. 2. Peritoneal infection with small abscess at the great toe. 3. Flexor hallucis longus tenosynovitis. Signed by Demetrius Matos MD, MFA on 01/28/2019 3:39 PM XR FOOT MIN 3 VIEWS RIGHT (STANDARD) Final Result No acute osseous or articular abnormality evident. Dorsal soft tissue swelling noted. Signed by Osei Conner on 01/27/2019 2:50 AM Complications: None Medications: Current Discharge Medication List START taking these medications cephalexin 500 MG Caps Commonly known as: KEFLEX Dose: 500 mg Quantity: 40 Cap Refills: 0 Take 1 Cap by mouth FOUR TIMES DAILY for 10 days. gabapentin 100 MG Caps Commonly known as: NEURONTIN Dose: 100 mg Quantity: 90 Cap Refills: 0 Take 1 Cap by mouth THREE TIMES DAILY for 30 days. CONTINUE these medications which have changed Aspirin 81 MG Tabs Dose: 81 mg What changed: Another medication with the same name was removed. Continue taking this medication, and follow the directions you see here. Refills: 0 Take 81 mg by mouth DAILY. lisinopril 5 MG Tabs Commonly known as: PRINIVIL, ZESTRIL Dose: 5 mg Start taking on: 02/03/2019 What changed: medication strength how much to take Quantity: 30 Tab Refills: 0 Take 1 Tab by mouth DAILY for 30 days. CONTINUE these medications which have NOT CHANGED metFORMIN 500 MG Tabs Commonly known as: GLUCOPHAGE Dose: 500 mg Quantity: 60 Tab Refills: 0 Take 1 Tab by mouth TWICE DAILY for 30 days. NPH insulin (INTERMEDIATE - Acting) 100 UNIT/ML Susp Commonly known as: NOVOLIN N, HUMULIN N Dose: 35-50 Units Refills: 0 Inject 35-50 Units beneath the skin TWO TIMES DAILY BEFORE MEALS. 50 units in a.m and 40 units in p.m REGULAR insulin (SHORT-Acting) 100 UNIT/ML Soln Commonly known as: Humulin R, Novolin R Dose: 18 Units Refills: 0 Inject 18 Units beneath the skin TWO TIMES DAILY BEFORE MEALS. ropinirole 0.25 MG Tabs Commonly known as: REQUIP Dose: 0.25 mg Quantity: 30 Tab Refills: 1 Take 1 Tab by mouth EVERY BEDTIME. Where to Get Your Medications These medications were sent to [facility] [address] [place] [address] [address] [facility] [address] Hours: 8am -10pm cephalexin 500 MG Caps gabapentin 100 MG Caps lisinopril 5 MG Tabs metFORMIN 500 MG Tabs Patient Instructions: Activity: activity as tolerated Wound Care: Keep wound clean and dry and Reinforce dressing as needed Follow-Up: 1. Follow up with PCP in 1 week. 2. Follow up with ID clinic in 1-2 weeks. 3. Follow up with podiatry clinic in 1-2 weeks. 4. Complete a total of 2 week course of antibiotics. Diet: Diabetic Diet Total duration of time spent: 35 minutes. 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 Follow up with PCP in 1 week. 2. Follow up with ID clinic in 1-2 weeks. 3. Follow up with podiatry clinic in 1-2 weeks. 4. Complete a total of 2 week course of antibiotics. Discharge Provider: Saud Bonilla MD Attending: Saud Bonilla,* Time: 14:01 Nurse's Instructions Problems to report to your Physician: Excessive pain or discomfort Fever > 100.5 degrees Difficulty breathing Increase or smell in wound drainage Skin/Wound Care: Keep wound clean and dry and Reinforce dressing as needed Medical Equipment/Supplies to help you at home: N/A Help arranged for you Home Health/Receiving Agency: N/A documented in this encounter Progress Notes Santiago Dejesus MD - 02/02/2019 1:04 PM EDT [address] [place] [address] Internal Medicine Progress Note Date of Service: 02/02/2019 Patient: Pawel Collier B #: [id number] Attending: SAUD BONILLA MD ,MD Subjective: Patient feels better with marked improvement of his R big toe redness, swelling and pain. Patient says he is more than 70 percent better. He has no fever, chills, nausea, vomiting, diarrhea, rash, CP or SOB. He feels weak and fatigued but otherwise feels well. Objective: Alert, oriented x 3, comfortable General: cooperative Heart: regular rate & rhythm Lungs: clear to auscultation and percussion Abd: soft, nontender, nondistended, no masses or organomegaly; BS normal Ext: R big toe with no swelling, redness or pain; small open wound at medial base of R big toe - scant discharge with no odor. L foot dorsum + superficial wound 1 x 1 cm with yellow biofilm Neuro: no focal deficits Vitals: Blood pressure 156/74, pulse 65, temperature 97.9 F (36.6 C), temperature source Temporal, resp. rate 16, height 5' 9" (1.753 m), weight 196 lb 8 oz (89.1 kg), SpO2 98 %. I/O: Intake/Output Summary (Last 24 hours) at 02/02/2019 1304 Last data filed at 02/01/2019 2315 Gross per 24 hour Intake 580 ml Output Net 580 ml Relevant labs and Radiology Results: Lab Results Component Value Date WBC 6.79 02/02/2019 HGB 13.6 (L) 02/02/2019 HCT 41.0 02/02/2019 PLAT 195 02/02/2019 Lab Results Component Value Date NA 137 02/02/2019 K 4.6 02/02/2019 CL 99 02/02/2019 CO2 29 02/02/2019 GLUCOSE 292 (H) 02/02/2019 BUN 25 (H) 02/02/2019 CREATININE 1.1 02/02/2019 CALCIUM 8.9 02/02/2019 TP 7.0 01/30/2019 ALBUMIN 3.2 (L) 01/30/2019 AST 27 01/30/2019 ALT 30 01/30/2019 ALK 198 (H) 01/30/2019 TBILI 0.5 01/30/2019 EGFR >60 02/02/2019 R foot MRI no osteomyelitis Assessment/Plan: Principal Problem: 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 Can taper to PO Keflex 500 QID x 14 days 2. Continue diabetic meds for blood sugar control 3. Follow up ID clinic in 2 weeks Case d/w Dr. Bonilla Author: Santiago Dejesus MD Crystal Adame MD - 02/01/2019 10:20 AM EDT [address] [address] Internal Medicine Progress Note Date of Service: 02/01/2019 Patient: Pawel Rockwell #: [id number] Attending: CRYSTAL BLISS MD, MD Subjective: Day 5 of hospitalization Overnight events: patient had itchy had last night, relived by benadryl Current Symptoms: Patient denies any new symptoms Pertinent ROS: Denies any chest pain, palpitation, fever, chills. Course since admission: Improving Objective: Alert, oriented to TPP General: cooperative Heart: regular rate & rhythm Lungs: clear to auscultation and percussion Abd: soft, nontender, nondistended, no masses or organomegaly; BS normal Ext: no edema and with small wound in his right great toe and swelling Neuro: no focal deficits Vitals: Blood pressure 160/70, pulse 71, temperature 97.7 F (36.5 C), temperature source Temporal, resp. rate 16, height 5' 9" (1.753 m), weight 196 lb 8 oz (89.1 kg), SpO2 97 %. 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 Work-up was done which showed elevated ESR and CRP. MRI was done which showed possibility of abscess but no any moisture mellitus. Podiatry was consulted. Recommended antibiotics for now and I&D if worsening. Blood culture has been negative so far Was managed with Vanco and Zosyn. Wound culture came back positive for staph aureus today. Talked with ID and changed antibiotics to Ancef. Uncontrolled diabetes mellitus: Has A1c of 11.4. Continue with sliding scale and NPH insulin. Hypertension: Home medication Isolation Status: DVT Prophylaxis: Lovenox Skin Care needs: Per protocol Discharge planning/Disposition: Pending Author: Crystal Bliss MD eCrystal nettles MD - 01/31/2019 10:56 AM EDT [address] [place] [address] Internal Medicine Progress Note Date of Service: 01/31/2019 Patient: Pawel Collier B #: [id number] Attending: CRYSTAL BLISS MD , Subjective: Day 4 of hospitalization Overnight events: no acute overnight events Current Symptoms: Patient denies any new symptoms Pertinent ROS: Denies any chest pain, palpitation, fever, chills. Course since admission: Improving Objective: Alert, oriented to TPP General: cooperative Heart: regular rate & rhythm Lungs: clear to auscultation and percussion Abd: soft, nontender, nondistended, no masses or organomegaly; BS normal Ext: no edema and with small wound in his right great toe and swelling Neuro: no focal deficits Vitals: Blood pressure 120/80, pulse 74, temperature 97.3 F (36.3 C), temperature source Temporal, resp. rate 18, height 5' 9" (1.753 m), weight 196 lb 8 oz (89.1 kg), SpO2 99 %. 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 Work-up was done which showed elevated ESR and CRP. MRI was done which showed possibility of abscess but no any moisture mellitus. Podiatry was consulted. Recommended antibiotics for now and I&D if worsening. Blood culture has been negative so far Was managed with Vanco and Zosyn. Wound culture came back positive for staph aureus today. Talked with ID and changed antibiotics to Ancef. Uncontrolled diabetes mellitus: Has A1c of 11.4. Continue with sliding scale and NPH insulin. Hypertension: Home medication Isolation Status: DVT Prophylaxis: Lovenox Skin Care needs: Per protocol Discharge planning/Disposition: Pending Author: Crystal Bliss MD eCrystal nettles MD - 01/30/2019 2:21 PM EDT [place] [address] Internal Medicine Progress Note Date of Service: 01/30/2019 Patient: Pawel Collier B #: [id number] Attending: CRYSTAL BLISS MD ,MD Subjective: Day 3 of hospitalization Overnight events: no acute overnight events Current Symptoms: Patient denies any new symptoms Pertinent ROS: Denies any chest pain, palpitation, fever, chills. Course since admission: Improving Objective: Alert, oriented to TPP General: cooperative Heart: regular rate & rhythm Lungs: clear to auscultation and percussion Abd: soft, nontender, nondistended, no masses or organomegaly; BS normal Ext: no edema and with small wound in his right great toe and swelling Neuro: no focal deficits Vitals: Blood pressure 158/74, pulse 68, temperature 98.3 F (36.8 C), temperature source Temporal, resp. rate 18, height 5' 9" (1.753 m), weight 196 lb 8 oz (89.1 kg), SpO2 95 %. 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 Work-up was done which showed elevated ESR and CRP. MRI was done which showed possibility of abscess but no any moisture mellitus. Podiatry was consulted. Recommended antibiotics for now and I&D if worsening. Blood culture has been negative so far Was managed with Vanco and Zosyn. ID recommended to DC vancomycin and continue with Zosyn. We will monitor for now Uncontrolled diabetes mellitus: Has A1c of 11.4. Continue with sliding scale and NPH insulin. Hypertension: Home medication Isolation Status: DVT Prophylaxis: Lovenox Skin Care needs: Per protocol Discharge planning/Disposition: Pending Author: Crystal Bliss MD Saud Cerda MD - 01/29/2019 1:40 PM EDT [address] [address] Internal Medicine Progress Note Date of Service: 01/29/2019 Patient: Pawel Collier B #: [id number] Attending: SAUD WHALEY MD ,MD Subjective: Patient was seen and examined at bedside, no new complains Objective: Alert, oriented x3 General: cooperative Heart: regular rate & rhythm Lungs: clear to auscultation and percussion Abd: soft, nontender, nondistended, no masses or organomegaly; Ext: no edema Neuro: no focal deficits Vitals: Blood pressure 137/64, pulse 86, temperature 97.9 F (36.6 C), temperature source Temporal, resp. rate 20, height 5' 9" (1.753 m), weight 196 lb 8 oz (89.1 kg), SpO2 99 %. I/O: Intake/Output Summary (Last 24 hours) at 01/29/2019 1340 Last data filed at 01/29/2019 0015 Gross per 24 hour Intake 728 ml Output Net 728 ml Relevant labs and Radiology Results: MR LOWER EXTREMITY W AND WO CONTRAST RIGHT Final Result 1. No osteomyelitis. 2. Peritoneal infection with small abscess at the great toe. 3. Flexor hallucis longus tenosynovitis. Signed by Demetrius Matos MD, A on 01/28/2019 3:39 PM XR FOOT MIN 3 VIEWS RIGHT (STANDARD) Final Result No acute osseous or articular abnormality evident. Dorsal soft tissue swelling noted. 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 Podiatry consulted for possible I & D - Follow blood culture negative for 48 hours -Wound care consulted - Will consult ID Essential HTN - Restarted on ACEI. Uncontrolled DMT2 - Will monitor closely in the hospital. - Patient will require outpatient follow up for optimization of home medications to control DM. - A1c 11.4. Plan/Impression: DVT Prophylaxis: lovenox Nutrition: [facility] Manuel remains in place for the following reason(s): No manuel present Disposition: Pending clinical course Author: Saud Whaley MD Saud Cerda MD - 01/28/2019 3:16 PM EDT [facility] [address] [place]. [address] Hospitalist Progress Note Date of Service: 01/28/2019 Patient: Pawel Collier B #: [id number] Attending: GASTON ATKINS MD ,MD Subjective: Evaluated at bed side denied for any complains. HPI: Pawel Collier is a 68-y.o. male with past medical history significant for uncontrolled diabetes,neuropathy. Last seen regularly in clinic 2 yrs ago. Has been getting insulin without rx at [facility] and taking Novolin N 50am, 40 hs plus novolin R 18am and 18 hs. Last hag1c 13 several months ago.Presents to ER with 3 days of redness swelling and pain right foot starting from great toe. Ulcer noted base of great toe. Diabetic foot infection concern for Osteomyelitis. Physical Exam Vitals: Blood pressure 141/66, pulse 82, temperature 98.3 F (36.8 C), temperature source Temporal, resp. rate 20, height 5' 9" (1.753 m), weight 196 lb 8 oz (89.1 kg), SpO2 98 %. CONSTITUTIONAL: well developed, well nourished, 68-y.o., male, no acute distress, sitting comfortably and alert, oriented, no acute distress EYES: conjunctivae/corneas clear. PERRL, EOM's intact. Fundi benign EARS/NOSE/MOUTH/THROAT: Head: Normal, normocephalic, atraumatic. RESPIRATORY: clear to auscultation bilaterally CARDIOVASCULAR: PMI normal. No lifts, heaves, or thrills. RRR. No murmurs, clicks or gallops. Abdominal aorta pulsation normal. Carotid, femoral and pedal pulses 4+ bilaterally. No arterial bruits. No peripheral edema. GASTROINTESTINAL: soft, non tender, without masses or organomegaly MUSCULOSKELETAL: Spine ROM normal. Muscular strength intact. SKIN: right foot edema and erythema to the ankle. Right great toe plantar and medial aspect ulcers, not draining. NEUROLOGICAL: alert, oriented, normal speech, no focal findings or movement disorder noted PSYCHIATRIC: appropriate to circumstances HEMATOLOGIC/LYMPHATIC/IMMUNOLOGIC: no palpable lymphadenopathy Data Review Labs: WBC Count Date Value Ref Range Status 01/28/2019 5.59 4.23 - 9.07 K/uL Final Comment: Methodology was changed 06/19/2018. Please note updated reference range and units. 01/27/2019 9.22 (H) 4.23 - 9.07 K/uL Final Hemoglobin Date Value Ref Range Status 01/28/2019 13.9 13.7 - 17.5 g/dL Final Hematocrit Date Value Ref Range Status 01/28/2019 41.0 40.1 - 51.0 % Final Platelet Count Date Value Ref Range Status 01/28/2019 216 163 - 337 K/uL Final , Sodium Date Value Ref Range Status 01/28/2019 136 134 - 145 mmol/L Final Potassium Date Value Ref Range Status 01/28/2019 4.1 3.5 - 5.1 mmol/L Final Chloride Date Value Ref Range Status 01/28/2019 98 98 - 107 mmol/L Final CO2 Date Value Ref Range Status 01/28/2019 32 (H) 22 - 30 mmol/L Final Glucose Date Value Ref Range Status 01/28/2019 201 (H) 70 - 99 mg/dl Final BUN Date Value Ref Range Status 01/28/2019 23 (H) 9 - 20 mg/dl Final Creatinine Date Value Ref Range Status 01/28/2019 1.1 0.8 - 1.5 mg/dl Final Calcium Date Value Ref Range Status 01/28/2019 8.7 8.3 - 10.1 mg/dl Final , No results found for: PTT, No results found for: INR Studies: XR FOOT MIN 3 VIEWS RIGHT (STANDARD) Final Result No acute osseous or articular abnormality evident. Dorsal soft tissue swelling noted. 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 - Follow blood cultures -Wound care consulted - Podiatry consulted Essential HTN - Restarted on ACEI. Uncontrolled DMT2 - Will monitor closely in the hospital. - Patient will require outpatient follow up for optimization of home medications to control DM. - A1c 11.4. Plan/Impression: DVT Prophylaxis: lovenox [facility] Manuel remains in place for the following reason(s): No manuel present Disposition: Pending clinical course Author: Gaston Atkins MD Max Burch NP - 01/27/2019 9:31 AM EDT [facility] [address]. [id number] Hospitalist Progress Note Date of Service: 01/27/2019 Patient: Pawel Collier B #: [id number] Attending: GASTON ATKINS MD ,MD Subjective: Patient with no complaints at this time. HPI: Pawel Collier is a 68-y.o. male with past medical history significant for uncontrolled diabetes,neuropathy. Last seen regularly in clinic 2 yrs ago. Has been getting insulin without rx at [facility] and taking Novolin N 50am, 40 hs plus novolin R 18am and 18 hs. Last hag1c 13 several months ago.Presents to ER with 3 days of redness swelling and pain right foot starting from great toe. Ulcer noted base of great toe. Diabetic foot infection concern for Osteomyelitis. Physical Exam Vitals: Blood pressure 167/79, pulse 95, temperature 98.6 F (37 C), temperature source Temporal, resp. rate 18, SpO2 99 %. CONSTITUTIONAL: well developed, well nourished, 68-y.o., male, no acute distress, sitting comfortably and alert, oriented, no acute distress EYES: conjunctivae/corneas clear. PERRL, EOM's intact. Fundi benign EARS/NOSE/MOUTH/THROAT: Head: Normal, normocephalic, atraumatic. RESPIRATORY: clear to auscultation bilaterally CARDIOVASCULAR: PMI normal. No lifts, heaves, or thrills. RRR. No murmurs, clicks or gallops. Abdominal aorta pulsation normal. Carotid, femoral and pedal pulses 4+ bilaterally. No arterial bruits. No peripheral edema. GASTROINTESTINAL: soft, non tender, without masses or organomegaly MUSCULOSKELETAL: Spine ROM normal. Muscular strength intact. SKIN: right foot edema and erythema to the ankle. Right great toe plantar and medial aspect ulcers, not draining. NEUROLOGICAL: alert, oriented, normal speech, no focal findings or movement disorder noted PSYCHIATRIC: appropriate to circumstances HEMATOLOGIC/LYMPHATIC/IMMUNOLOGIC: no palpable lymphadenopathy Data Review Labs: WBC Count Date Value Ref Range Status 01/27/2019 9.22 (H) 4.23 - 9.07 K/uL Final Hemoglobin Date Value Ref Range Status 01/27/2019 14.0 13.7 - 17.5 g/dL Final Hematocrit Date Value Ref Range Status 01/27/2019 40.9 40.1 - 51.0 % Final Platelet Count Date Value Ref Range Status 01/27/2019 219 163 - 337 K/uL Final , Sodium Date Value Ref Range Status 01/27/2019 133 (L) 134 - 145 mmol/L Final Potassium Date Value Ref Range Status 01/27/2019 4.3 3.5 - 5.1 mmol/L Final Chloride Date Value Ref Range Status 01/27/2019 95 (L) 98 - 107 mmol/L Final CO2 Date Value Ref Range Status 01/27/2019 28 22 - 30 mmol/L Final Glucose Date Value Ref Range Status 01/27/2019 307 (H) 70 - 99 mg/dl Final BUN Date Value Ref Range Status 01/27/2019 19 9 - 20 mg/dl Final Creatinine Date Value Ref Range Status 01/27/2019 0.8 0.8 - 1.5 mg/dl Final Calcium Date Value Ref Range Status 01/27/2019 9.8 8.3 - 10.1 mg/dl Final , No results found for: PTT, No results found for: INR Studies: XR FOOT MIN 3 VIEWS RIGHT (STANDARD) Final Result No acute osseous or articular abnormality evident. Dorsal soft tissue swelling noted. 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 - MRI of the foot pending. - Resumed home insulin regimen. Monitor POC glucose closely and adjust as necessary. - Glycohb AIc pending. Essential HTN - Restarted on ACEI. Uncontrolled DMT2 - Will monitor closely in the hospital. - Patient will require outpatient follow up for optimization of home medications to control DM. Plan/Impression: DVT Prophylaxis: lovenox Nutrition: [facility] Manuel remains in place for the following reason(s): No manuel present Disposition: Pending clinical course Patient was seen and discussed with Dr. Atkins who agrees with the assessment and plan. Author: Max Dubon NP Associated attestation - Gaston Atkins MD - [facility] Supervising MD Documentation Date of Service: 01/27/19 B# [id number] I saw and evaluated the patient. Discussed with resident and agree with the resident's findings andplan as documented in the resident's note. Gaston Atkins MD Supervising Physiciandocumented in this encounter Plan of Treatment Date Type Specialty Care Team Description 02/18/2019 Office Visit Infectious Diseases Santiago Dejesus MD [address] [address] Name Type Priority Associated Diagnoses Date/Time VL BODY MEASURE POLLO Imaging Routine 01/30/2019 9:28 AM EDT MULTIPLE Health Maintenance Due Date Last Done Comments DEPRESSION SCREENING 1964 ZOSTER IMMUNIZATION SERIES (1 of 2002 2) FALL RISK ASSESSMENT 2017 PNEUMOCOCCAL 65+YRS (1 of 2 - 2017 PCV13) INFLUENZA VACCINE (#1) 2019 COLONOSCOPY SCREENING 11/08/2023 11/07/2013 HEPATITIS C SCREENING Completed 11/28/2015 HPV IMMUNIZATION SERIES Aged Out No longer eligible based on patient's age to complete this topic MENINGOCOCCAL VACCINE IMM Aged Out No longer eligible based on patient's age to complete this topic documented as of this encounter Goals Goal Patient Goal Associated Recent Patient-Stated? Author Type Problems Progress Blood Pressure Blood Pressure Essential 156/74 No Miranda, < 140/90 hypertension (02/02/2019 Shanika, 7:20 AM EDT) Note: Hypertension Care Plan Based on the patient's clinical history and according to JNC 8 guidelines target blood pressure goal is less than 140/90. Based on the patient's last blood pressure of BP: (!) 160/102 the patient is at above goal. As your provider, it is important that I advise you regarding: your current medications and help you with any challenges you may face taking your medications as directed (ex. instructions, cost, side effects, and interactions). Important lifestyle changes: exercise, weight reduction, diet and dietary sodium reduction your clinical goals and how you can achieve success: weight reduction, exercise plan and diet improvements medication management: adjusted medications as appropriate patient education/self-management tools provided: Yes To successfully manage my Hypertension I will: monitor my blood pressure daily, understanding that my goal is less than 140/ 90 per my healthcare provider's recommendation. I will schedule an appointment with my provider if consistent abnormal readings greater than 160/100. take medications every day as prescribed by my healthcare provider and if unable to take them I will discuss with my provider. monitor for symptoms of chest pain, chest tightness/pressure, irregular heartbeat, persistent dizziness, radiating arm pain, and neck or jaw pain. If any of these symptoms are noticed I will seek medical attention immediately by calling 911 exercise/walk 30 minutes 5 day(s) per week. If I experience chest pain, chest tightness, or shortness of breath, I will seek medical attention immediately. follow a diet rich in fruits, vegetables, and low-fat dairy products with reduced content of saturated & total fat. I will reduce my sodium intake daily. An example is the DASH diet. To obtain more information please refer to the DASH Eating Plan listed in Educational Resources. record my blood pressure results. Kat is safe and secure way for you to do this in your medical record online. try to obtain an ideal body weight. My recent weight was Weight: 201 lb ( 91.2 kg). My weight loss goal for my next office visit is 195. limit alcohol consumption. For men two drinks per day and women one drink per day. if currently smoking, will discuss how to quit smoking with my healthcare provider and work towards quitting. Educational Resources: National Heart, Lung, & Blood [place] http://nhlbi.nih.gov/hbp/index.html The DASH Diet Eating Plan http://www.nhlbi.nih.gov/health/health-topics/ topics/dash/ Academy of Nutrition & DIetetics http://eatright.org National Smoking Cessation Site http://smokefree.gov Lifestyle < 7.0 Diabetes Type 2 diabetes 11.4 (01/27/2019 No Miranda, mellitus with 11:55 AM EDT) MD Shanika diabetic foot infection Note: Diabetes Care Plan According to current 2014 ADA guidelines the patient A1C goal is less than 7. The patient's last A1C was No results found for: GLYCO, GLYCOPOCT, [id number] The patient is:above goal . As your provider, it is important that I advise you regarding: your current medications and help you with any challenges you may face taking your medications as directed (ex. instructions, cost, side effects, and interactions). Important lifestyle changes:exercise, diet, glucose monitoring and medication compliance your clinical goals and how you can achieve success:exercise plan and diet management medication management: adjusted medications as appropriate patient education/self-management tools provided: Yes To successfully manage my Diabetes I will: have lab work every six months if my previous A1c was 7 or less. If my results were greater than 7, I will have lab work every three months. My goal is to control my diabetes by keeping A1c below 7.0 take medications every day as prescribed by my healthcare provider and if unable to take them I will discuss with my provider. exercise/walk 30 minutes 5 day(s) per week. If I experience chest pain, chest tightness, or shortness of breath, I will seek medical attention immediately. check feet daily. If sores or irritation are noticed, will seek medical attention. follow a low carbohydrate and low fat diet. My goal is an LDL (bad cholesterol) number less than 100 when I have my routine lab work. check blood sugar as instructed and will call my healthcare provider if the results are consistently below 70 or above 300. I will monitor for symptoms of low blood sugar (feeling faint, dizzy, lig htheaded, jittery, sweaty, or hungry), if symptoms are noticed, I will eat or drink something (glucose tabs, orange juice, candy) to help raise sugar. record my blood sugar results (including dextrose sticks). boomtraine is safe and secure way for you to do this in your medical record online. try to obtain an ideal body weight. My recent weight was Weight: 201 lb ( 91.2 kg). My weight loss goal for my next office visit is 195. to prevent kidney problems common to people with diabetes I will complete a yearly Microalbumin to check for protein in urine. I will talk with my healthcare provider about medications to prevent diabetic renal disease. to prevent diabetic retinopathy I will see an eye doctor yearly. A yearly dilated eye exam helps prevent blindness. if currently smoking, will discuss how to quit smoking with my healthcare provider and work towards quitting. documented as of this encounter Procedures Procedure Name Priority Date/Time Associated Comments Diagnosis HC GLUCOSE, BY MONITOR Routine 02/02/2019 12:07 Results for this PM EDT procedure are in the results section. HC GLUCOSE, BY MONITOR Routine 02/02/2019 8:01 Results for this AM EDT procedure are in the results section. CBC WITH DIFFERENTIAL Routine 02/02/2019 4:50 Results for this AM EDT procedure are in the results section. BASIC METABOLIC PANEL Routine 02/02/2019 4:50 Results for this AM EDT procedure are in the results section. HC GLUCOSE, BY MONITOR Routine 02/01/2019 9:00 Results for this PM EDT procedure are in the results section. HC GLUCOSE, BY MONITOR Routine 02/01/2019 5:09 Results for this PM EDT procedure are in the results section. HC GLUCOSE, BY MONITOR Routine 02/01/2019 11:29 Results for this AM EDT procedure are in the results section. HC GLUCOSE, BY MONITOR Routine 02/01/2019 8:15 Results for this AM EDT procedure are in the results section. CBC WITH DIFFERENTIAL Routine 02/01/2019 5:15 Results for this AM EDT procedure are in the results section. BASIC METABOLIC PANEL Routine 02/01/2019 5:15 Results for this AM EDT procedure are in the results section. HC GLUCOSE, BY MONITOR Routine 01/31/2019 8:33 Results for this PM EDT procedure are in the results section. HC GLUCOSE, BY MONITOR Routine 01/31/2019 5:32 Results for this PM EDT procedure are in the results section. HC GLUCOSE, BY MONITOR Routine 01/31/2019 11:41 Results for this AM EDT procedure are in the results section. CBC WITH DIFFERENTIAL Routine 01/31/2019 11:01 Results for this AM EDT procedure are in the results section. BASIC METABOLIC PANEL Routine 01/31/2019 11:01 Results for this AM EDT procedure are in the results section. HC GLUCOSE, BY MONITOR Routine 01/31/2019 9:53 Results for this AM EDT procedure are in the results section. HC GLUCOSE, BY MONITOR Routine 01/30/2019 9:49 Results for this PM EDT procedure are in the results section. HC GLUCOSE, BY MONITOR Routine 01/30/2019 6:59 Results for this PM EDT procedure are in the results section. HC GLUCOSE, BY MONITOR Routine 01/30/2019 4:28 Results for this PM EDT procedure are in the results section. HC GLUCOSE, BY MONITOR Routine 01/30/2019 12:08 Results for this PM EDT procedure are in the results section. HC GLUCOSE, BY MONITOR Routine 01/30/2019 8:26 Results for this AM EDT procedure are in the results section. COMPREHENSIVE METABOLIC Routine 01/30/2019 6:27 Results for this PANEL W/REFLEX MAGNESIUM AM EDT procedure are in the results section. CBC NO DIFFERENTIAL Routine 01/30/2019 6:27 Results for this AM EDT procedure are in the results section. HC GLUCOSE, BY MONITOR Routine 01/30/2019 5:40 Results for this AM EDT procedure are in the results section. HC GLUCOSE, BY MONITOR Routine 01/29/2019 8:30 Results for this PM EDT procedure are in the results section. HC GLUCOSE, BY MONITOR Routine 01/29/2019 5:24 Results for this PM EDT procedure are in the results section. ANAEROBIC/AEROBIC Routine 01/29/2019 4:48 Results for this CULTURE W/ GRAM STAIN PM EDT procedure are in (C&S) the results section. HC GLUCOSE, BY MONITOR Routine 01/29/2019 12:13 Results for this PM EDT procedure are in the results section. HC GLUCOSE, BY MONITOR Routine 01/29/2019 8:02 Results for this AM EDT procedure are in the results section. BASIC METABOLIC PANEL Routine 01/29/2019 6:12 Results for this W/REFLEX MAGNESIUM AM EDT procedure are in the results section. HC GLUCOSE, BY MONITOR Routine 01/28/2019 9:11 Results for this PM EDT procedure are in the results section. HC GLUCOSE, BY MONITOR Routine 01/28/2019 4:19 Results for this PM EDT procedure are in the results section. VANCOMYCIN LEVEL TROUGH Routine 01/28/2019 3:22 Results for this PM EDT procedure are in the results section. MR LOWER EXTREMITY W AND EN 01/28/2019 3:06 Results for this WO CONTRAST RIGHT PM EDT procedure are in the results section. HC GLUCOSE, BY MONITOR Routine 01/28/2019 12:09 Results for this PM EDT procedure are in the results section. HC GLUCOSE, BY MONITOR Routine 01/28/2019 7:55 Results for this AM EDT procedure are in the results section. C-REACTIVE PROTEIN Routine 01/28/2019 7:48 Results for this AM EDT procedure are in the results section. BASIC METABOLIC PANEL Routine 01/28/2019 7:48 Results for this AM EDT procedure are in the results section. SEDIMENTATION RATE Routine 01/28/2019 7:48 Results for this AM EDT procedure are in the results section. CBC NO DIFFERENTIAL Routine 01/28/2019 7:48 Results for this AM EDT procedure are in the results section. HC GLUCOSE, BY MONITOR Routine 01/27/2019 4:34 Results for this PM EDT procedure are in the results section. HC GLUCOSE, BY MONITOR Routine 01/27/2019 12:47 Results for this PM EDT procedure are in the results section. GLYCOHEMOGLOBIN A1C Routine 01/27/2019 11:55 Results for this AM EDT procedure are in the results section. HC GLUCOSE, BY MONITOR Routine 01/27/2019 7:54 Results for this AM EDT procedure are in the results section. ADULT BLOOD CULTURE Routine 01/27/2019 3:11 Results for this AM EDT procedure are in the results section. BLOOD CULTURESC&S) Routine 01/27/2019 3:11 Results for this AM EDT procedure are in the results section. XR FOOT MIN 3 VIEWS STAT 01/27/2019 2:48 Results for this RIGHT (STANDARD) AM EDT procedure are in the results section. CBC WITH DIFFERENTIAL STAT 01/27/2019 2:29 Results for this AM EDT procedure are in the results section. RAINBOW LAB HOLD TUBES STAT 01/27/2019 2:29 Results for this AM EDT procedure are in the results section. ADULT BLOOD CULTURE Routine 01/27/2019 2:29 Results for this AM EDT procedure are in the results section. RAINBOW DRAW GOLD TOP STAT 01/27/2019 2:29 AM EDT RAINBOW DRAW LIGHT BLUE STAT 01/27/2019 2:29 TOP AM EDT BLOOD CULTURESC&S) Routine 01/27/2019 2:29 Results for this AM EDT procedure are in the results section. GLYCOHEMOGLOBIN A1C Routine 01/27/2019 2:29 Results for this AM EDT procedure are in the results section. COMPREHENSIVE METABOLIC STAT 01/27/2019 2:29 Results for this PANEL AM EDT procedure are in the results section. documented in this encounter Results GLUCOSE (POCT) (02/02/2019 12:07 PM EDT) Glucose POCT 327 (H) 70 - 99 mg/dl POINT OF CARE Result Comment: TESTING Performed at: [facility] POCT Benji Gerardo MD, Laboratory Rn Lvn [address] [place] [address] Specimen Performing Organization Address [facility] Phone Number POINT OF CARE TESTING GLUCOSE (POCT) (02/02/2019 8:01 AM EDT) Glucose POCT 223 (H) 70 - 99 mg/dl POINT OF CARE Result Comment: TESTING Performed at: [facility] POCT Benji Gerardo MD, Laboratory Rn Lvn [address] [place] [address] Specimen Performing Organization Address City/[facility] Phone Number POINT OF CARE TESTING BASIC METABOLIC PANEL (02/02/2019 4:50 AM EDT) Glucose 292 (H) 70 - 99 mg/dl [facility] BUN 25 (H) 9 - 20 mg/dl [facility] Creatinine 1.1 0.8 - 1.5 mg/dl [facility] Sodium 137 134 - 145 mmol/L [facility] Potassium 4.6 3.5 - 5.1 mmol/L [facility] Chloride 99 98 - 107 mmol/L [facility] CO2 29 22 - 30 mmol/L [facility] Calcium 8.9 8.3 - 10.1 mg/dl [facility] eGFR >60 See Interpretation [facility] Comment: Below ml/min/1.73ml GROUP Sq LABORATORY Estimated GFR Interpretation: Above 60ml/min/1.73m2 = Normal Renal Function 30-59 ml/min/1.73m2 = Stage 3 Chronic Kidney Disease 15-29 ml/min/1.73m2 = Stage 4 Chronic Kidney Disease Less than 15 ml/min/1.73m2 = Stage 5 Chronic Kidney Disease The GFR value is calculated using the Modification of Diet in Renal Disease ( MDRD) Study Equation which can be found at: https://www.kidney.org/content/yskm-wnrxb-nosczdfj BUN/Creatinine 23 (H) 6 - 22 [facility] LABORATORY Anion Gap 9 3 - 11 mmol/L [facility] Specimen Blood Performing Organization Address City/State/Zipcode Phone Number [facility] [address] [place] [address] CBC WITH DIFFERENTIAL (02/02/2019 4:50 AM EDT) WBC Count 6.79 4.23 - 9.07 K/uL [facility] RBC Count 4.84 4.30 - 5.89 M/UL [facility] Hemoglobin 13.6 (L) 13.7 - 17.5 g/dL [facility] Hematocrit 41.0 40.1 - 51.0 % [facility] MCV 84.7 79.0 - 92.2 FL [facility] MCH 28.1 25.7 - 32.2 PG [facility] MCHC 33.2 32.3 - 36.5 g/dL [facility] Platelet Count 195 163 - 337 K/uL [facility] MPV 9.1 (L) 9.4 - 12.4 FL [facility] RDW 13.0 11.6 - 14.4 % [facility] Neutrophil % 56.1 34.0 - 67.9 % [facility] Lymphocyte % 30.9 21.8 - 53.1 % [facility] Monocyte % 9.6 5.3 - 12.2 % [facility] Eosinophil % 2.1 0.8 - 7.0 % [facility] Basophil % 1.0 0.2 - 1.2 % [facility] nRBC % 0.0 0.0 - 0.2 % [facility] Neutrophil # 3.81 1.78 - 5.38 K/UL [facility] Lymphocyte # 2.10 1.32 - 3.57 K/UL [facility] Monocyte # 0.65 0.30 - 0.82 K/UL [facility] Eosinophil # 0.14 0.04 - 0.54 K/UL [facility] Basophil # 0.07 0.01 - 0.08 K/UL [facility] Immature Gran % 0.3 0.0 - 0.4 % [facility] Immature Gran # 0.02 0.00 - 0.03 K/uL [facility] NRBC # 0.00 0.00 - 0.12 K/uL [facility] Specimen Blood Performing Organization Address [facility] Phone Number [facility] [address] [place] [id number] GLUCOSE (POCT) (02/01/2019 9:00 PM EDT) Glucose POCT 326 (H) 70 - 99 mg/dl POINT OF CARE Result Comment: TESTING Performed at: [facility] POCT Benji Gerardo MD, Laboratory Rn Lvn [address] [place] [address] Specimen Performing Organization Address [facility] [place] [place] Phone Number POINT OF CARE TESTING GLUCOSE (POCT) (02/01/2019 5:09 PM EDT) Glucose POCT 172 (H) 70 - 99 mg/dl POINT OF CARE Result Comment: TESTING Performed at: [facility] POCT Benji Gerardo MD, Laboratory Rn Lvn [address] [place] [address] Specimen Performing Organization Address [facility] [place] [place] Phone Number POINT OF CARE TESTING GLUCOSE (POCT) (02/01/2019 11:29 AM EDT) Glucose POCT 195 (H) 70 - 99 mg/dl POINT OF CARE Result Comment: TESTING Performed at: [facility] POCT Benji Gerardo MD, Laboratory Rn Lvn 1 [place] [address] Specimen Performing Organization Address [facility] [place], [place] Phone Number POINT OF CARE TESTING GLUCOSE (POCT) (02/01/2019 8:15 AM EDT) Glucose POCT 157 (H) 70 - 99 mg/dl POINT OF CARE Result Comment: TESTING Performed at: [facility] POCT Benji Gerardo MD, Laboratory Rn Lvn 1 [place] [address] Specimen Performing Organization Address [facility] [place], [place] Phone Number POINT OF CARE TESTING BASIC METABOLIC PANEL (02/01/2019 5:15 AM EDT) Glucose 144 (H) 70 - 99 mg/dl [facility] BUN 21 (H) 9 - 20 mg/dl [facility] Creatinine 1.1 0.8 - 1.5 mg/dl [facility] Sodium 139 134 - 145 mmol/L [facility] Potassium 4.4 3.5 - 5.1 mmol/L [facility] Chloride 97 (L) 98 - 107 mmol/L [facility] CO2 34 (H) 22 - 30 mmol/L [facility] Calcium 9.8 8.3 - 10.1 mg/dl [facility] eGFR >60 See Interpretation [facility] Comment: Below ml/min/1.73ml [facility] Estimated GFR Interpretation: Above 60ml/min/1.73m2 = Normal Renal Function 30-59 ml/min/1.73m2 = Stage 3 Chronic Kidney Disease 15-29 ml/min/1.73m2 = Stage 4 Chronic Kidney Disease Less than 15 ml/min/1.73m2 = Stage 5 Chronic Kidney Disease The GFR value is calculated using the Modification of Diet in Renal Disease ( MDRD) Study Equation which can be found at: https://www.kidney.org/content/fnho-ffxnj-cmleeosp BUN/Creatinine 19 6 - 22 [facility] Anion Gap 8 3 - 11 mmol/L [facility] Specimen Blood Performing Organization Address City/State/Zipcode Phone Number [facility] [address] [facility] [place] [address] CBC WITH DIFFERENTIAL (02/01/2019 5:15 AM EDT) WBC Count 6.73 4.23 - 9.07 K/uL [facility] RBC Count 4.93 4.30 - 5.89 M/UL [facility] Hemoglobin 14.0 13.7 - 17.5 g/dL [facility] Hematocrit 42.1 40.1 - 51.0 % [facility] MCV 85.4 79.0 - 92.2 FL [facility] MCH 28.4 25.7 - 32.2 PG [facility] MCHC 33.3 32.3 - 36.5 g/dL [facility] Platelet Count 219 163 - 337 K/uL [facility] MPV 9.2 (L) 9.4 - 12.4 FL [facility] RDW 12.6 11.6 - 14.4 % [facility] Neutrophil % 58.5 34.0 - 67.9 % [facility] Lymphocyte % 29.6 21.8 - 53.1 % [facility] Monocyte % 7.6 5.3 - 12.2 % [facility] Eosinophil % 3.0 0.8 - 7.0 % [facility] Basophil % 1.0 0.2 - 1.2 % [facility] nRBC % 0.0 0.0 - 0.2 % [facility] Neutrophil # 3.94 1.78 - 5.38 K/UL [facility] Lymphocyte # 1.99 1.32 - 3.57 K/UL [facility] Monocyte # 0.51 0.30 - 0.82 K/UL [facility] Eosinophil # 0.20 0.04 - 0.54 K/UL [facility] Basophil # 0.07 0.01 - 0.08 K/UL [facility] Immature Gran % 0.3 0.0 - 0.4 % [facility] Immature Gran # 0.02 0.00 - 0.03 K/uL [facility] NRBC # 0.00 0.00 - 0.12 K/uL [facility] Specimen Blood Performing Organization Address [facility] [place], [place] Phone Number [facility] [address] [place] [address] GLUCOSE (POCT) (01/31/2019 8:33 PM EDT) Glucose POCT 363 (H) 70 - 99 mg/dl POINT OF CARE Result Comment: TESTING Performed at: [facility] POCT Benji Gerardo MD, Laboratory Rn Lvn 1 [facility] [place] [address] Specimen Performing Organization Address [facility] [place], [place] Phone Number POINT OF CARE TESTING GLUCOSE (POCT) (01/31/2019 5:32 PM EDT) Glucose POCT 299 (H) 70 - 99 mg/dl POINT OF CARE Result Comment: TESTING Performed at: [facility] POCT Benji Gerardo MD, Laboratory Rn Lvn [address] [place] [address] Specimen Performing Organization Address [facility] [place], [place] Phone Number POINT OF CARE TESTING GLUCOSE (POCT) (01/31/2019 11:41 AM EDT) Glucose POCT 294 (H) 70 - 99 mg/dl POINT OF CARE Result Comment: TESTING Performed at: [facility] POCT Benji Gerardo MD, Laboratory Rn Lvn [address] [facility] [place] [address] Specimen Performing Organization Address [facility] [place], [place] Phone Number POINT OF CARE TESTING BASIC METABOLIC PANEL (01/31/2019 11:01 AM EDT) Glucose 343 (H) 70 - 99 mg/dl [facility] BUN 18 9 - 20 mg/dl [facility] Creatinine 1.1 0.8 - 1.5 mg/dl [facility] Sodium 133 (L) 134 - 145 mmol/L [facility] Potassium 5.0 3.5 - 5.1 mmol/L [facility] Chloride 95 (L) 98 - 107 mmol/L [facility] CO2 32 (H) 22 - 30 mmol/L [facility] Calcium 9.2 8.3 - 10.1 mg/dl [facility] eGFR >60 See Interpretation [facility] Comment: Below ml/min/1.73ml GROUP Sq LABORATORY Estimated GFR Interpretation: Above 60ml/min/1.73m2 = Normal Renal Function 30-59 ml/min/1.73m2 = Stage 3 Chronic Kidney Disease 15-29 ml/min/1.73m2 = Stage 4 Chronic Kidney Disease Less than 15 ml/min/1.73m2 = Stage 5 Chronic Kidney Disease The GFR value is calculated using the Modification of Diet in Renal Disease ( MDRD) Study Equation which can be found at: https://www.kidney.org/content/oswl-kujuv-nrwsrsqc BUN/Creatinine 16 6 - 22 [facility] Anion Gap 6 3 - 11 mmol/L [facility] Specimen Blood Performing Organization Address City/State/Zipcode Phone Number [facility] [address] [place] [address] CBC WITH DIFFERENTIAL (01/31/2019 11:01 AM EDT) WBC Count 5.67 4.23 - 9.07 K/uL [facility] RBC Count 4.71 4.30 - 5.89 M/UL [facility] Hemoglobin 13.4 (L) 13.7 - 17.5 g/dL [facility] Hematocrit 39.9 (L) 40.1 - 51.0 % [facility] MCV 84.7 79.0 - 92.2 FL [facility] MCH 28.5 25.7 - 32.2 PG [facility] MCHC 33.6 32.3 - 36.5 g/dL [facility] Platelet Count 204 163 - 337 K/uL [facility] MPV 9.3 (L) 9.4 - 12.4 FL [facility] RDW 12.7 11.6 - 14.4 % [facility] Neutrophil % 62.8 34.0 - 67.9 % [facility] Lymphocyte % 25.9 21.8 - 53.1 % [facility] Monocyte % 7.4 5.3 - 12.2 % [facility] Eosinophil % 2.6 0.8 - 7.0 % [facility] Basophil % 1.1 0.2 - 1.2 % [facility] nRBC % 0.0 0.0 - 0.2 % [facility] Neutrophil # 3.56 1.78 - 5.38 K/UL [facility] Lymphocyte # 1.47 1.32 - 3.57 K/UL [facility] Monocyte # 0.42 0.30 - 0.82 K/UL [facility] Eosinophil # 0.15 0.04 - 0.54 K/UL [facility] Basophil # 0.06 0.01 - 0.08 K/UL [facility] Immature Gran % 0.2 0.0 - 0.4 % [facility] Immature Gran # 0.01 0.00 - 0.03 K/uL [facility] NRBC # 0.00 0.00 - 0.12 K/uL [facility] Specimen Blood Performing Organization Address [facility] Phone Number [facility] [address] [place] [address] GLUCOSE (POCT) (01/31/2019 9:53 AM EDT) Glucose POCT 322 (H) 70 - 99 mg/dl POINT OF CARE Result Comment: TESTING Performed at: [facility] POCT Benji Gerardo MD, Laboratory Rn Lvn 1 [facility] [place] [address] Specimen Performing Organization Address [facility] [place], [place] Phone Number POINT OF CARE TESTING GLUCOSE (POCT) (01/30/2019 9:49 PM EDT) Glucose POCT 242 (H) 70 - 99 mg/dl POINT OF CARE Result Comment: TESTING Performed at: [facility] POCT Benji Gerardo MD, Laboratory Rn Lvn [address] [place] [address] Specimen Performing Organization Address City/[facility] Phone Number POINT OF CARE TESTING GLUCOSE (POCT) (01/30/2019 6:59 PM EDT) Glucose POCT 120 (H) 70 - 99 mg/dl POINT OF CARE Result Comment: TESTING Performed at: [facility] POCT Benji Gerardo MD, Laboratory Rn Lvn 1 [place] [address] Specimen Performing Organization Address City/[facility] Phone Number POINT OF CARE TESTING GLUCOSE (POCT) (01/30/2019 4:28 PM EDT) Glucose POCT 249 (H) 70 - 99 mg/dl POINT OF CARE Result Comment: TESTING Performed at: [facility] POCT Benji Gerardo MD, Laboratory Rn Lvn [address] [place] [address] Specimen Performing Organization Address [facility] Phone Number POINT OF CARE TESTING GLUCOSE (POCT) (01/30/2019 12:08 PM EDT) Glucose POCT 311 (H) 70 - 99 mg/dl POINT OF CARE Result Comment: TESTING Performed at: [facility] POCT Benji Gerardo MD, Laboratory Rn Lvn 1 [place] [address] Specimen Performing Organization Address City/[facility] [place], [place] Phone Number POINT OF CARE TESTING GLUCOSE (POCT) (01/30/2019 8:26 AM EDT) Glucose POCT 172 (H) 70 - 99 mg/dl POINT OF CARE Result Comment: TESTING Performed at: [facility] POCT Benji Gerardo MD, Laboratory Rn Lvn [address] [place] [address] Specimen Performing Organization Address City/[facility] [place], [place] Phone Number POINT OF CARE TESTING COMPREHENSIVE METABOLIC PANEL W/REFLEX MAGNESIUM (01/30/2019 6:27 AM EDT) Sodium 137 134 - 145 mmol/L [facility] Potassium 3.8 3.5 - 5.1 mmol/L [facility] Chloride 98 98 - 107 mmol/L [facility] CO2 31 (H) 22 - 30 mmol/L [facility] Calcium 8.6 8.3 - 10.1 mg/dl [facility] Albumin 3.2 (L) 3.5 - 5.0 g/dl [facility] BUN 17 9 - 20 mg/dl [facility] Creatinine 1.0 0.8 - 1.5 mg/dl [facility] Glucose 162 (H) 70 - 99 mg/dl [facility] Total Protein 7.0 6.3 - 8.2 g/dl [facility] Total Bilirubin 0.5 0.0 - 1.1 MG/DL [facility] AST 27 17 - 59 U/L [facility] ALT 30 21 - 72 U/L [facility] Alkaline 198 (H) 40 - 150 U/L [facility] Phosphatase [facility] eGFR >60 See Interpretation [facility] Comment: Below ml/min/1.73ml GROUP Sq LABORATORY Estimated GFR Interpretation: Above 60ml/min/1.73m2 = Normal Renal Function 30-59 ml/min/1.73m2 = Stage 3 Chronic Kidney Disease 15-29 ml/min/1.73m2 = Stage 4 Chronic Kidney Disease Less than 15 ml/min/1.73m2 = Stage 5 Chronic Kidney Disease The GFR value is calculated using the Modification of Diet in Renal Disease ( MDRD) Study Equation which can be found at: https://www.kidney.org/content/hvll-wueoq-abkiupsn BUN/Creatinine 17 6 - 22 [facility] Ratio [facility] Anion Gap 8 3 - 11 mmol/L [facility] A/G Ratio 0.8 0.8 - 2.0 ratio [facility] Specimen Blood Performing Organization Address City/State/Zipcode Phone Number [facility] 1 [place] [address] [phone] CBC NO DIFFERENTIAL (01/30/2019 6:27 AM EDT) WBC Count 6.01Comment: 4.23 - 9.07 [facility] Methodology was K/uL [facility] changed 06/19/2018. Please note updated reference range and units. RBC Count 4.62 4.30 - 5.89 [facility] M/UL [facility] Hemoglobin 13.2 (L) 13.7 - 17.5 [facility] g/dL [facility] Hematocrit 39.6 (L) 40.1 - 51.0 % [facility] MCV 85.7 79.0 - 92.2 [facility] FL [facility] MCH 28.6 25.7 - 32.2 [facility] PG [facility] MCHC 33.3 32.3 - 36.5 [facility] g/dL [facility] Platelet Count 209 163 - 337 [facility] K/uL [facility] MPV 9.1 (L) 9.4 - 12.4 FL [facility] RDW 12.6 11.6 - 14.4 % [facility] Specimen Blood Performing Organization Address [facility] Phone Number [facility] [address] [place] [address] [phone] GLUCOSE (POCT) (01/30/2019 5:40 AM EDT) Glucose POCT 154 (H) 70 - 99 mg/dl POINT OF CARE Result Comment: TESTING Performed at: [facility] POCT Benji Gerardo MD, Laboratory Rn Lvn [address] [place] [address] Specimen Performing Organization Address [facility] Phone Number POINT OF CARE TESTING GLUCOSE (POCT) (01/29/2019 8:30 PM EDT) Glucose POCT 307 (H) 70 - 99 mg/dl POINT OF CARE Result Comment: TESTING Performed at: [facility] POCT Benji Gerardo MD, Laboratory Rn Lvn [address] [place] [address] Specimen Performing Organization Address [facility] [place], [place] Phone Number POINT OF CARE TESTING GLUCOSE (POCT) (01/29/2019 5:24 PM EDT) Glucose POCT 275 (H) 70 - 99 mg/dl POINT OF CARE Result Comment: TESTING Performed at: [facility] POCT Benji Gerardo MD, Laboratory Rn Lvn [address] [place] [address] Specimen Performing Organization Address [facility] [place], [place] Phone Number POINT OF CARE TESTING ANAEROBIC/AEROBIC CULTURE W/ GRAM STAIN (C&S) (01/29/2019 4:48 PM EDT) Anaerobic Culture Rare Staphylococcus [facility] aureus (A) [facility] Gram Stain 2+ Nucleated Cells [facility] Including Polys [facility] Gram Stain No Organisms Observed [facility] Specimen Wound Narrative Performed At With rare normal skin jaya [facility] Organism Antibiotic Method Susceptibility Staphylococcus aureus Clindamycin MARIELLE 0.25 ug/ml: Sensitive Staphylococcus aureus Daptomycin MARIELLE 0.25 ug/ml: Sensitive Staphylococcus aureus Erythromycin MARIELLE <=0.25 ug/ml: Sensitive Staphylococcus aureus Gentamicin MARIELLE <=0.5 ug/ml: Sensitive Staphylococcus aureus Linezolid MARIELLE 2 ug/ml: Sensitive Staphylococcus aureus Oxacillin MARIELLE 0.5 ug/ml: Sensitive Staphylococcus aureus Tetracycline MARIELLE <=1 ug/ml: Sensitive Staphylococcus aureus Trimethoprim + Sulfamethoxazole MARIELLE <=10 ug/ml: Sensitive Staphylococcus aureus Vancomycin MARIELLE 1 ug/ml: Sensitive Performing Organization Address [facility] [place], [place] Phone Number [facility] [address] [place] [address] GLUCOSE (POCT) (01/29/2019 12:13 PM EDT) Glucose POCT 339 (H) 70 - 99 mg/dl POINT OF CARE Result Comment: TESTING Performed at: [facility] POCT Benji Gerardo MD, Laboratory Rn Lvn [address] [place] [address] Specimen Performing Organization Address [facility] [place], [place] Phone Number POINT OF CARE TESTING GLUCOSE (POCT) (01/29/2019 8:02 AM EDT) Glucose POCT 266 (H) 70 - 99 mg/dl POINT OF CARE Result Comment: TESTING Performed at: [facility] POCT Benji Gerardo MD, Laboratory Rn Lvn [address] [place] [address] Specimen Performing Organization Address [facility] [place], [place] Phone Number POINT OF CARE TESTING BASIC METABOLIC PANEL W/REFLEX MAGNESIUM (01/29/2019 6:12 AM EDT) Sodium 135 134 - 145 mmol/L [facility] Potassium 4.4 3.5 - 5.1 mmol/L [facility] Chloride 98 98 - 107 mmol/L [facility] CO2 29 22 - 30 mmol/L [facility] Calcium 8.6 8.3 - 10.1 mg/dl [facility] BUN 19 9 - 20 mg/dl [facility] Creatinine 1.0 0.8 - 1.5 mg/dl [facility] Glucose 255 (H) 70 - 99 mg/dl [facility] eGFR >60 See Interpretation [facility] Comment: Below ml/min/1.73ml [facility] Estimated GFR Interpretation: Above 60ml/min/1.73m2 = Normal Renal Function 30-59 ml/min/1.73m2 = Stage 3 Chronic Kidney Disease 15-29 ml/min/1.73m2 = Stage 4 Chronic Kidney Disease Less than 15 ml/min/1.73m2 = Stage 5 Chronic Kidney Disease The GFR value is calculated using the Modification of Diet in Renal Disease ( MDRD) Study Equation which can be found at: https://www.kidney.org/content/nvic-mjcnr-yxklwkcz BUN/Creatinine 19 6 - 22 [facility] Anion Gap 8 3 - 11 mmol/L [facility] Specimen Blood Performing Organization Address [facility] [place], [place] Phone Number [facility] [address] [place] [address] GLUCOSE (POCT) (01/28/2019 9:11 PM EDT) Glucose POCT 166 (H) 70 - 99 mg/dl POINT OF CARE Result Comment: TESTING Performed at: [facility] POCT Benji Gerardo MD, Laboratory Rn Lvn [address] [place] [address] Specimen Performing Organization Address [facility] [place], [place] Phone Number POINT OF CARE TESTING GLUCOSE (POCT) (01/28/2019 4:19 PM EDT) Glucose POCT 305 (H) 70 - 99 mg/dl POINT OF CARE Result Comment: TESTING Performed at: [facility] POCT Benji Gerardo MD, Laboratory Rn Lvn [address] [place] [address] Specimen Performing Organization Address [facility] [place], [place] Phone Number POINT OF CARE TESTING VANCOMYCIN LEVEL TROUGH (01/28/2019 3:22 PM EDT) Vancomycin Trough 13.0 10.1 - 19.9 UG/ML [facility] Specimen Blood Performing Organization Address [facility] [place], [place] Phone Number [facility] [address] [address] [phone] MR LOWER EXTREMITY W AND WO CONTRAST RIGHT (01/28/2019 3:06 PM EDT) Specimen Impressions Performed At 1. No osteomyelitis. 2. Peritoneal infection with small abscess at the great toe. 3. Flexor hallucis longus tenosynovitis. Signed by Demetrius Matos MD, MFA on 01/28/2019 3:39 PM Narrative Performed At Procedure(s): MR LOWER EXTREMITY W AND WO CONTRAST RIGHT Date of service: 01/28/2019 2:09 PM Provided clinical information: 68 years, Male, "Osteomyelitis suspected, foot swelling, diabetic" Procedure and materials: MRI of the right forefoot with and without contrast was obtained. Standard protocol. Contrast: Gadobutrol 10 mmol IV. Comparison studies: X-ray dated 01/27/2019. Findings: FLUID: There are small fluid collections immediately adjacent to the hallux to at its tibial and fibular aspects, best demonstrated on T1 coronal series image 12. JOINTS: Note that this study is not optimized to evaluate for internal derangement. No significant arthrosis. Alignment is anatomic. BONES: There is marrow edema at the great toe distal and proximal phalanges, but T1 signal is only minimally decreased, consistent with reactive edema. The cortex is well-defined without evidence for erosive change. There is no apparent skin discontinuity by MRI criteria. There is no sinus tract in the soft tissues leading to bone. MUSCLES/TENDONS/LIGAMENTS: There is mild atrophy and edema of all visualized muscles consistent with neuropathy in this diabetic patient. No gross tendinous disruption. There is excess fluid in the flexor hallucis longus tendon sheath. No gross ligamentous injury. OTHER: No mass. No cyst. CONTRAST IMAGING: Expected enhancement associated with inflammatory activity at the reactive edema, tenosynovitis, and periungual infection mentioned above. Procedure Note Interface, Rad Results - 01/28/2019 3:41 PM EDT Procedure(s): MR LOWER EXTREMITY W AND WO CONTRAST RIGHT Date of service: 01/28/2019 2:09 PM Provided clinical information: 68 years, Male, "Osteomyelitis suspected, foot swelling, diabetic" Procedure and materials: MRI of the right forefoot with and without contrast was obtained. Standard protocol. Contrast: Gadobutrol 10 mmol IV. Comparison studies: X-ray dated 01/27/2019. Findings: FLUID: There are small fluid collections immediately adjacent to the hallux to at its tibial and fibular aspects, best demonstrated on T1 coronal series image 12. JOINTS: Note that this study is not optimized to evaluate for internal derangement. No significant arthrosis. Alignment is anatomic. BONES: There is marrow edema at the great toe distal and proximal phalanges, but T1 signal is only minimally decreased, consistent with reactive edema. The cortex is well-defined without evidence for erosive change. There is no apparent skin discontinuity by MRI criteria. There is no sinus tract in the soft tissues leading to bone. MUSCLES/TENDONS/LIGAMENTS: There is mild atrophy and edema of all visualized muscles consistent with neuropathy in this diabetic patient. No gross tendinous disruption. There is excess fluid in the flexor hallucis longus tendon sheath. No gross ligamentous injury. OTHER: No mass. No cyst. CONTRAST IMAGING: Expected enhancement associated with inflammatory activity at the reactive edema, tenosynovitis, and periungual infection mentioned above. IMPRESSION 1. No osteomyelitis. 2. Peritoneal infection with small abscess at the great toe. 3. Flexor hallucis longus tenosynovitis. Signed by Demetrius Matos MD, A on 01/28/2019 3:39 PM GLUCOSE (POCT) (01/28/2019 12:09 PM EDT) Glucose POCT 368 (H) 70 - 99 mg/dl POINT OF CARE Result Comment: TESTING Performed at: [facility] POCT Benji Gerardo MD, Laboratory Rn Lvn 1 [place] [address] Specimen Performing Organization Address [facility] [place], [place] Phone Number POINT OF CARE TESTING GLUCOSE (POCT) (01/28/2019 7:55 AM EDT) Glucose POCT 183 (H) 70 - 99 mg/dl POINT OF CARE Result Comment: TESTING Performed at: [facility] POCT Benji Gerardo MD, Laboratory Rn Lvn [address] [place] [address] Specimen Performing Organization Address [facility] [place], [place] Phone Number POINT OF CARE TESTING C-REACTIVE PROTEIN (01/28/2019 7:48 AM EDT) C-Reactive Protein 8.10 (H) <1.00 mg/dl [facility] Specimen Blood Performing Organization Address [facility] [place], [place] Phone Number [facility] LABORATORY [address] [place] [address] SEDIMENTATION RATE (01/28/2019 7:48 AM EDT) ESR 64 (H) 0 - 20 MM/HR [facility] Comment: GROUP LABORATORY Methodology was changed 12/10/18. Please note updated reference range. Specimen Blood Performing Organization Address [facility] [place], [place] Phone Number [facility] [address] [place] [address] BASIC METABOLIC PANEL (01/28/2019 7:48 AM EDT) Glucose 201 (H) 70 - 99 mg/dl [facility] BUN 23 (H) 9 - 20 mg/dl [facility] Creatinine 1.1 0.8 - 1.5 mg/dl [facility] Sodium 136 134 - 145 mmol/L [facility] Potassium 4.1 3.5 - 5.1 mmol/L [facility] Chloride 98 98 - 107 mmol/L [facility] CO2 32 (H) 22 - 30 mmol/L [facility] Calcium 8.7 8.3 - 10.1 mg/dl [facility] eGFR >60 See Interpretation [facility] Comment: Below ml/min/1.73ml [facility] LABORATORY Estimated GFR Interpretation: Above 60ml/min/1.73m2 = Normal Renal Function 30-59 ml/min/1.73m2 = Stage 3 Chronic Kidney Disease 15-29 ml/min/1.73m2 = Stage 4 Chronic Kidney Disease Less than 15 ml/min/1.73m2 = Stage 5 Chronic Kidney Disease The GFR value is calculated using the Modification of Diet in Renal Disease ( MDRD) Study Equation which can be found at: https://www.kidney.org/content/mych-vnnnb-kbndycmv BUN/Creatinine 21 6 - 22 [facility]IO [facility] LABORATORY Anion Gap 6 3 - 11 mmol/L [facility] Specimen Blood Performing Organization Address [facility] [place], [place] Phone Number [facility] [address] [place] [address] CBC NO DIFFERENTIAL (01/28/2019 7:48 AM EDT) WBC Count 5.59Comment: 4.23 - 9.07 [facility] Methodology was K/uL GROUP LABORATORY changed 06/19/2018. Please note updated reference range and units. RBC Count 4.87 4.30 - 5.89 [facility]ORY Hemoglobin 13.9 13.7 - 17.5 [facility] g/dL GROUP LABORATORY Hematocrit 41.0 40.1 - 51.0 % [facility] MCV 84.2 79.0 - 92.2 [facility] FL GROUP LABORATORY MCH 28.5 25.7 - 32.2 [facility] PG GROUP LABORATORY MCHC 33.9 32.3 - 36.5 [facility] g/dL GROUP LABORATORY Platelet Count 216 163 - 337 [facility] K/uL GROUP LABORATORY MPV 9.3 (L) 9.4 - 12.4 FL [facility] RDW 12.7 11.6 - 14.4 % [facility] Specimen Blood Performing Organization Address [facility] [place], [place] Phone Number [facility] 1 [place] [address] GLUCOSE (POCT) (01/27/2019 4:34 PM EDT) Glucose POCT 221 (H) 70 - 99 mg/dl POINT OF CARE Result Comment: TESTING Performed at: [facility] POCT Benji Gerardo MD, Laboratory Rn Lvn [address] [place] [address] Specimen Performing Organization Address [facility] [place], [place] Phone Number POINT OF CARE TESTING GLUCOSE (POCT) (01/27/2019 12:47 PM EDT) Glucose POCT 241 (H) 70 - 99 mg/dl POINT OF CARE Result Comment: TESTING Performed at: [facility] POCT Benji Gerardo MD, Laboratory Rn Lvn [address] [place] [address] Specimen Performing Organization Address [facility] [place], [place] Phone Number POINT OF CARE TESTING GLYCOHEMOGLOBIN A1C (01/27/2019 11:55 AM EDT) Glycohemoglobin A1C 11.4 (H) <=5.6 % [facility] Comment: GROUP LABORATORY Normal*: <=5.6% Pre Diabetes* Risk: 5.7-6.4% Diabetes* Risk: >=6.5% Glycemic Goals for Adult Diabetes*: <7.0% *(Adult Ranges)[place] [employer], Standards of Medical Care in Diabetes, 2018 Specimen Blood Performing Organization Address [facility] Phone Number [facility] [address] [address] GLUCOSE (POCT) (01/27/2019 7:54 AM EDT) Glucose POCT 360 (H) 70 - 99 mg/dl POINT OF CARE Result Comment: TESTING Performed at: [facility] POCT Benji Gerardo MD, Laboratory Rn Lvn [address] [place] [address] Specimen Performing Organization Address [facility] [place], [place] Phone Number POINT OF CARE TESTING ADULT BLOOD CULTURE (01/27/2019 3:11 AM EDT) ADULT BLOOD CULTURE No Growth in 5 [facility] LABORATORY Specimen Blood Performing Organization Address [facility] [place], [place] Phone Number [facility] [address] [address] XR FOOT MIN 3 VIEWS RIGHT (STANDARD) (01/27/2019 2:48 AM EDT) Specimen Impressions Performed At No acute osseous or articular abnormality evident. Dorsal soft tissue swelling noted. Signed by Osei Conner on 01/27/2019 2:50 AM Narrative Performed At Procedure(s): XR FOOT MIN 3 VIEWS RIGHT (STANDARD) Date of service: 01/27/2019 2:33 AM Provided clinical information: 68 years, Male, "Diabetic foot infection, R/O osteo" Procedure and materials: Standard protocol. Comparison studies: None. Observations: Side: 3 views of the right foot were obtained. Bones: Intact with no displaced fracture or focal osseous destruction. There is posterior and plantar calcaneal enthesopathy. Joints: There is anatomic alignment with normal joint spaces. Soft tissues: Vascular calcifications are present. Some soft tissue swelling appears to be present in the dorsum of the foot. Procedure Note Interface, Rad Results - 01/27/2019 2:52 AM EDT Procedure(s): XR FOOT MIN 3 VIEWS RIGHT (STANDARD) Date of service: 01/27/2019 2:33 AM Provided clinical information: 68 years, Male, "Diabetic foot infection, R/O osteo" Procedure and materials: Standard protocol. Comparison studies: None. Observations: Side: 3 views of the right foot were obtained. Bones: Intact with no displaced fracture or focal osseous destruction. There is posterior and plantar calcaneal enthesopathy. Joints: There is anatomic alignment with normal joint spaces. Soft tissues: Vascular calcifications are present. Some soft tissue swelling appears to be present in the dorsum of the foot. IMPRESSION No acute osseous or articular abnormality evident. Dorsal soft tissue swelling noted. Signed by Osei Conner on 01/27/2019 2:50 AM GLYCOHEMOGLOBIN A1C (01/27/2019 2:29 AM EDT) Glycohemoglobin A1C 11.4 (H) <=5.6 % [facility] Comment: GROUP LABORATORY Normal*: <=5.6% Pre Diabetes* Risk: 5.7-6.4% Diabetes* Risk: >=6.5% Glycemic Goals for Adult Diabetes*: <7.0% *(Adult Ranges)[place] [employer], Standards of Medical Care in Diabetes, 2018 Specimen Blood Performing Organization Address [facility] Phone Number [facility] [address] [place] [address] RAINBOW DRAW LIGHT BLUE TOP (01/27/2019 2:29 AM EDT) Specimen Blood Performing Organization Address [facility] [place], [place] Phone Number [facility] [address] [address] RAINBOW DRAW GOLD TOP (01/27/2019 2:29 AM EDT) Specimen Blood Performing Organization Address [facility] Phone Number [facility] [address] [place] [address] [phone] ADULT BLOOD CULTURE (01/27/2019 2:29 AM EDT) ADULT BLOOD CULTURE No Growth in 5 [facility] LABORATORY Specimen Blood Performing Organization Address [facility] Phone Number [facility] [address] [place] [address] [phone] COMPREHENSIVE METABOLIC PANEL (01/27/2019 2:29 AM EDT) Sodium 133 (L) 134 - 145 mmol/L [facility] Potassium 4.3 3.5 - 5.1 mmol/L [facility] Chloride 95 (L) 98 - 107 mmol/L [facility] CO2 28 22 - 30 mmol/L [facility] Calcium 9.8 8.3 - 10.1 mg/dl [facility] Albumin 3.6 3.5 - 5.0 g/dl [facility] BUN 19 9 - 20 mg/dl [facility] Creatinine 0.8 0.8 - 1.5 mg/dl [facility] Glucose 307 (H) 70 - 99 mg/dl [facility] Total Protein 7.9 6.3 - 8.2 g/dl [facility] Total Bilirubin 1.1 0.0 - 1.1 MG/DL [facility] AST 20 17 - 59 U/L [facility] ALT 29 21 - 72 U/L [facility] Alkaline 199 (H) 40 - 150 U/L [facility] LABORATORY eGFR >60 See Interpretation [facility] Comment: Below ml/min/1.73ml [facility] LAB[facility]ORY Estimated GFR Interpretation: Above 60ml/min/1.73m2 = Normal Renal Function 30-59 ml/min/1.73m2 = Stage 3 Chronic Kidney Disease 15-29 ml/min/1.73m2 = Stage 4 Chronic Kidney Disease Less than 15 ml/min/1.73m2 = Stage 5 Chronic Kidney Disease The GFR value is calculated using the Modification of Diet in Renal Disease ( MDRD) Study Equation which can be found at: https://www.kidney.org/content/frhz-yfoei-qolaqvze BUN/Creatinine 24 (H) 6 - 22 [facility] GROUP LABORATORY Anion Gap 10 3 - 11 mmol/L [facility] A/G Ratio 0.8 0.8 - 2.0 ratio [facility] Specimen Blood Performing Organization Address City/State/Zipcode Phone Number [facility] 1 [facility] [place] [address] CBC WITH DIFFERENTIAL (01/27/2019 2:29 AM EDT) WBC Count 9.22 (H) 4.23 - 9.07 K/uL [facility] RBC Count 4.96 4.30 - 5.89 M/UL [facility] Hemoglobin 14.0 13.7 - 17.5 g/dL [facility] Hematocrit 40.9 40.1 - 51.0 % [facility] MCV 82.5 79.0 - 92.2 FL [facility] MCH 28.2 25.7 - 32.2 PG [facility] MCHC 34.2 32.3 - 36.5 g/dL [facility] Platelet Count 219 163 - 337 K/uL [facility] MPV 9.0 (L) 9.4 - 12.4 FL [facility] RDW 12.6 11.6 - 14.4 % [facility] Neutrophil % 68.4 (H) 34.0 - 67.9 % [facility] Lymphocyte % 20.3 (L) 21.8 - 53.1 % [facility] Monocyte % 9.3 5.3 - 12.2 % [facility] Eosinophil % 1.1 0.8 - 7.0 % [facility] Basophil % 0.7 0.2 - 1.2 % [facility] nRBC % 0.0 0.0 - 0.2 % [facility] Neutrophil # 6.31 (H) 1.78 - 5.38 K/UL [facility] Lymphocyte # 1.87 1.32 - 3.57 K/UL [facility] Monocyte # 0.86 (H) 0.30 - 0.82 K/UL [facility] Eosinophil # 0.10 0.04 - 0.54 K/UL [facility] Basophil # 0.06 0.01 - 0.08 K/UL [facility] Immature Gran % 0.2 0.0 - 0.4 % [facility] Immature Gran # 0.02 0.00 - 0.03 K/uL [facility] NRBC # 0.00 0.00 - 0.12 K/uL [facility] Specimen Blood Performing Organization Address City/State/[facility] Phone Number 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) - Primary Type II or unspecified type diabetes mellitus with other specified manifestations, not stated as uncontrolled Diabetic foot infection (HCC) Type II or unspecified type diabetes mellitus with other specified manifestations, not stated as uncontrolled Essential hypertension Unspecified essential hypertension Uncontrolled type 2 diabetes mellitus with hyperglycemia (HCC) Uncontrolled diabetes mellitus (HCC) Type II or unspecified type diabetes mellitus without mention of complication, uncontrolled documented in this encounter Administered Medications Medication Order MAR Action Action Date Dose Rate Site acetaminophen (TYLENOL) tablet Given 01/27/2019 3:24 AM EDT 650 mg 650 mg 650 mg, Oral, NOW, 1 dose, Sat01/27/19 at 0320 acetaminophen (TYLENOL) tablet 650 mg Given 01/28/2019 3:24 PM EDT 650 mg 650 mg, Oral, Q4 HRS PRN, Starting Sat01/27/19 at 0348, Until Sat02/02/19 at 1926, Temp > 101 - 1st line acetaminophen (TYLENOL) tablet 650 mg Given 01/31/2019 10:01 AM EDT 650 mg 650 mg, Oral, Q4 HRS PRN, Starting Sat01/27/19 at 0519, Until Sat02/02/19 at 1926, Moderate Pain (pain scale 4-6) - PO - 1st line - if immediate effect not required and patient can tolerate PO Given 01/30/2019 11:40 PM EDT 650 mg Given 01/29/2019 6:56 PM EDT 650 mg ALPRAZolam (XANAX) tablet 0.125 mg Given 02/01/2019 2:42 PM EDT 0.125 mg 0.125 mg, Oral, X1, 1 dose, First dose on Sat02/01/19 at 0910 calcium carbonate (TUMS) chewable tablet 1,000 mg 1,000 mg, Oral, Q4 HRS PRN, Starting Sat01/28/19 at 2151, Until Sat02/02/19 at 1926, Heartburn - 1st line cefazolin (ANCEF) IV syringe 2 g Given 02/02/2019 12:46 PM EDT 2 g 2 g (2,000 mg), Intravenous Push, Q8 HRS, 21 doses, First dose on Sat01/31/19 at 1200, Last dose on Sat02/07/19 at 0400 Given 02/02/2019 5:52 AM EDT 2 g Given 02/01/2019 9:01 PM EDT 2 g dextrose injection 50 % 25 g, Intravenous, PRN, Starting Sat01/27/19 at 0511, Until Sat02/02/19 at 1926 , blood glucose < ___, <70 and patient NPO or not alert diphenhydrAMINE (BENADRYL) capsule 25 mg Given 02/01/2019 3:37 AM EDT 25 mg 25 mg, Oral, X1, 1 dose, First dose on Sat02/01/19 at 0420 diphenhydrAMINE (BENADRYL) injection 25 mg Push 02/01/2019 3:05 PM EDT 25 mg 25 mg, Intravenous, X1, 1 dose, First dose on Sat02/01/19 at 1540 enoxaparin (LOVENOX) injection Given 02/02/2019 12:46 PM EDT 40 mg Abdominal Tissue 40 mg/0.4 mL 40 mg 40 mg, Subcutaneous, Q24 HRS, 13 doses, First dose on Sat01/27/19 at 1040, Last dose on Sat02/07/19 at 1200 Given 02/01/2019 11:27 AM EDT 40 mg Abdominal Tissue Given 01/31/2019 11:40 AM EDT 40 mg Abdominal Tissue gabapentin (NEURONTIN) capsule 100 mg Given 02/02/2019 5:18 PM EDT 100 mg 100 mg, Oral, TID, First dose on Sat02/01/19 at 1440, Until Discontinued Given 02/02/2019 9:31 AM EDT 100 mg Given 02/01/2019 9:01 PM EDT 100 mg gadobutrol (GADOVIST) 1 MMOL/ML IV New Bag 01/28/2019 3:07 PM EDT 10 mmol solution 10 mmol 10 mmol (10 mL), Intravenous, NOW, 1 dose, [facility] 01/28/19 at 1510 glucose (GLUTOSE) oral gel 40 % 1-2 Tube, Oral, PRN, Starting Sat01/27/19 at 0511, Until Sat02/02/19 at 1926, blood glucose < ___, Administer for Blood Glucose < 50 and patient eating and alert per hypoglycemia protocol HOLD MEDICATION Given 01/28/2019 4:00 PM EDT Does not apply, AC, First dose on Sat01/27/19 at 0700, Until Discontinued Given 01/27/2019 4:00 PM EDT hydrocortisone (HYTONE) topical cream 1 Given 01/31/2019 11:19 PM EDT Hand- Right % Topical, TID PRN, Starting 01/31/19 at 2257, Until 02/02/19 at 1926, Pruritis/Itching - 1st line lisinopril (PRINIVIL, ZESTRIL) tablet 5 mg Given 02/02/2019 9:31 AM EDT 5 mg 5 mg, Oral, DAILY, First dose on Sat01/27/19 at 0900, Until Discontinued Given 02/01/2019 8:12 AM EDT 5 mg Given 01/31/2019 9:59 AM EDT 5 mg LISPRO insulin Given 01/29/2019 12:14 PM EDT 4 Units Arm - Upper Right (RAPID-Acting) SENSITIVE Correction Scale Inj 9 Units 9 Units, Subcutaneous, AC, First dose on Sat01/27/19 at 0700, Until Discontinued Given 01/29/2019 8:03 AM EDT 3 Units Arm - Upper Right Given 01/28/2019 5:24 PM EDT 9 Units Arm - Upper Right LISPRO insulin (RAPID-Acting) Given 02/02/2019 12:47 PM 4 Units Abdominal Tissue SENSITIVE Correction Scale Inj EDT Subcutaneous, AC/HS, First dose on Sat01/29/19 at 1600, Until Discontinued Given 02/02/2019 9:31 AM EDT 2 Units Abdominal Tissue Given 02/01/2019 9:00 PM EDT 4 Units Arm - Upper Right muscle rub (BENGAY, ICY HOT) topical Given 01/31/2019 5:30 PM EDT Leg - Right cream 10-15 % Topical, QID PRN, Starting 01/31/19 at 1005, Until 02/02/19 at 1926, Pain (pain scale 1-10) - Topical - 2nd line - if pain present 4 hours after administration of 1st line agent. May be used in conjunction with PO/WI/Injectable pain medications Given 01/31/2019 11:40 AM EDT Leg - Right NPH insulin (INTERMEDIATE - Given 02/01/2019 5:08 PM EDT 40 Units Arm - Upper Left Acting) injection 40 Units 40 Units, Subcutaneous, PRE SUPPER, First dose on Sat01/27/19 at 1630, Until Discontinued Given 01/31/2019 5:30 PM EDT 40 Units Arm - Upper Right Given 01/30/2019 4:29 PM EDT 40 Units Arm - Upper Right NPH insulin (INTERMEDIATE - Given 02/02/2019 9:31 AM EDT 50 Units Abdominal Tissue Acting) injection 50 Units 50 Units, Subcutaneous, PRE BREAKFAST, First dose on Sat01/27/19 at 0600, Until Discontinued Given 02/01/2019 8:13 AM EDT 50 Units Arm - Upper Right Given 01/31/2019 9:56 AM EDT 50 Units Arm - Upper Right ondansetron (ZOFRAN) injection 4 mg 4 mg, Intravenous, Q8 HRS PRN, Starting Sat01/27/19 at 0348, Until Sat02/02/19 at 1926, Nausea/Vomiting - IV - 1st line - If immediate effect required or patient cannot tolerate PO piperacillin-TAZOBACTAM (ZOSYN) (4 Hour) IV New Bag 01/31/2019 8:01 AM EDT 4.5 g mixture 4.5 g 4.5 g, Intravenous, Q6 HRS, 25 doses, First dose on Sat01/27/19 at 0900, Last dose on Sat02/02/19 at 0800 New Bag 01/30/2019 9:50 PM EDT 4.5 g New Bag 01/30/2019 3:06 PM EDT 4.5 g piperacillin-TAZOBACTAM (ZOSYN) IV premix New Bag 01/27/2019 3:05 AM EDT 4.5 g 4.5 g 4.5 g, Intravenous, NOW, 1 dose, Sat01/27/19 at 0220 ramelteon (ROZEREM) tablet 8 mg Given 02/01/2019 9:01 PM EDT 8 mg 8 mg, Oral, QHS PRN, Starting Sat01/29/19 at 2100, Until Sat02/02/19 at 1926, Sleep/Insomnia - 1st line Given 01/31/2019 10:03 PM EDT 8 mg Given 01/30/2019 11:39 PM EDT 8 mg vancomycin (VANCOCIN) IV mixture 1,000 New Bag 01/30/2019 5:43 AM EDT 1, 000 mg mg 1,000 mg, Intravenous, Q12 HRS, 13 doses, First dose on Sat01/27/19 at 0300, Last dose on Sat02/02/19 at 0500 New Bag 01/29/2019 5:28 PM EDT 1,000 mg New Bag 01/29/2019 5:37 AM EDT 1,000 mg vancomycin (VANCOCIN) IV mixture 2,000 New Bag 01/27/2019 4:31 AM EDT 2, 000 mg mg 2,000 mg, Intravenous, NOW, 1 dose, Sat01/27/19 at 0320 documented in this encounter Insurance Payer Benefit Plan / Subscriber ID Effective Dates Phone Address Type Group AETNA MEDICARE AETNA MEDICARE xxxxxxxx 2018-Present [employer] ADVANTAGE ADVANTAGE Guarantor Name Account Type Relation to Date of Phone Billing Patient Address Pawel Collier Personal/Family 1950 [address] [facility] (Home) [facility] [phone] [place], [place] (Work) [id number] documented as of this encounter
--- NOTE | 2019-02-12 20:14 | ED ---
Complex/Multi-Sys Presentation - HPI Summary HPI Summary: Patient is a 68 y/o M presenting to ED via EMS with complaints of right foot swelling and pain, abdominal pain, as well as left-sided jaw pain. He states that two weeks ago, he had right foot pain and swelling onset. Patient was evaluated at urgent care, x-ray and US was done. Patient was advised to come to [facility] for further evaluation. However, when patient arrived to [facility], he was disagreeable with blood work and decided to leave. Patient later went to [facility] where he states that he had an MRI of his foot and was found to have an abscess in his foot. He was started on antibiotics, but states that his foot Sx have returned and he is concerned that the antibiotics have been ineffective. Patient additionally recently went to the dentist and states that he has a "hole " at the left side of his mouth. He states that he has drainage from this area and reports that he has abdominal pain as a result of swallowing this drainage. Pain had exacerbated in the past few days. Patient was evaluated by Dr. Roman today, who advised the patient to come to the ED for workup. PMHx of diabetes, patient is on gabapentin and metoformin. He also reports that he has a VERMA at present. Chronic bilateral calf pain is reported as well. Patient is a former smoker. On triage, pain is rated 8/10, nothing is noted to aggravate/alleviate Sx. Home medications and allergies are reviewed. - History Of Current Complaint Time Seen by Provider: 02/12/19 20:08 Hx Obtained From: Patient Onset/Duration: Lasting Weeks, Still Present, Worse Since Timing: Constant, Weeks Severity Initially: Severe Location: Pain At: - abdomen, left jaw, and right foot Aggravating Factor(s): nothing Alleviating Factor(s): nothing Associated Signs And Symptoms: Positive: Headache, Abdominal Pain, Other - right foot pain and swelling, left jaw pain, drainage from left jaw - Allergies/Home Medications Allergies/Adverse Reactions: Allergies Allergy/AdvReac Type Severity Reaction Status Date / Time No Known Allergies Allergy Verified 02/12/19 20:10 Home Medications: Home Medications Aspirin 81 mg CHEW TAB* 81 mg PO DAILY 02/12/19 [History Confirmed 02/12/19] Gabapentin CAP(*) [Neurontin 300 CAP(*)] 300 mg PO TID 02/12/19 [History Confirmed 02/12/19] Lisinopril TAB* [Prinivil TAB 5 MG*] 5 mg PO DAILY 02/12/19 [History Confirmed 02/12/19] metFORMIN* [Glucophage 500 MG TAB *] 500 mg PO BID 02/12/19 [History Confirmed 02/12/19] PMH/Surg Hx/FS Hx/Imm Hx Endocrine/Hematology History: Reports: Hx Diabetes - iddm Denies: Hx Thyroid Disease Cardiovascular History: Denies: Hx Hypertension Respiratory History: Denies: Hx Asthma, Hx Chronic Obstructive Pulmonary Disease (COPD) GI History: Denies: Hx Ulcer - Surgical History Surgery Procedure, Year, and Place: Knee surgery, left eye popped out and put back in at age 18. Infectious Disease History: No Infectious Disease History: Denies: Hx Hepatitis, Hx Human Immunodeficiency Virus (HIV), Traveled Outside the [place] in Last 30 Days - Family History Known Family History: Positive: Diabetes - Social History Alcohol Use: Rare Substance Use Type: Reports: None Smoking Status (MU): Former Smoker Review of Systems ENT: Other - left jaw pain with drainage Positive: Abdominal Pain Musculoskeletal: Other - right foot pain Positive: Edema - right foot Positive: Headache All Other Systems Reviewed And Are Negative: Yes Physical Exam - Summary Physical Exam Summary: Appearance: Well-appearing, Well-nourished, lying in bed comfortably Skin: Warm, dry, no obvious rash Eyes: sclera anicteric, no conjunctival pallor ENT: mucous membranes moist, pharynx appears normal; edentulous, no thrush in mouth, no swelling or masses in mouth Neck: Supple, nontender Respiratory: Clear to auscultation, no signs of respiratory distress Cardiovascular: Normal S1, S2. No murmurs. Normal distal pulses in tibial and radial bilaterally. Abdomen: Soft, nontender, normal active bowel sounds present Musculoskeletal: Strength/ROM Intact; swelling and redness with mild warmth extending from great toe on right to medial aspect of the foot; there are no draining lesions, no pointing or fluctuance, no lymphangitic streaking Neurological: A&Ox3, awake and alert, mentation is normal, speech is fluent and appropriate Psychiatric: affect is normal, does not appear anxious or depressed Triage Information Reviewed: Yes Vital Signs On Initial Exam: Initial Vitals Temp Pulse Resp BP Pulse Ox 97.3 F 76 16 161/80 97 08/29/19 19:55 02/12/19 19:55 02/12/19 19:55 02/12/19 19:55 02/12/19 19:55 Vital Signs Reviewed: Yes Diagnostics - Vital Signs Vital Signs Temp Pulse Resp BP Pulse Ox 02/12/19 19:55 97.3 F 76 16 161/80 97 - Laboratory Result Diagrams: 02/13/19 05:36 02/13/19 05:36 Lab Statement: Any lab studies that have been ordered have been reviewed, and results considered in the medical decision making process. - Radiology CXR Radiology Interpretation Completed By: ED Physician Summary of Radiographic Findings: No acute process, pending official report. RIGHT FOOT X-RAY Radiology Interpretation Completed By: ED Physician Summary of Radiographic Findings: No acute process, pending official report. - CT MAXILLOFACIAL CT CT Interpretation Completed By: Radiologist Summary of CT Findings: IMPRESSION: Distention of the left parotid duct. The appearance of the left parotid gland. appears smaller than the right. No focal mass within the parotid gland. Recommend further assessment of the buccal mucosa. No obvious distal parotid. duct stone. THIS REPORT WAS REVIEWED BY DR. HERNÁNDEZ. Re-Evaluation - Re-Evaluation First Eval Re-Evaluation Time: 23:03 Comment: Results and labs discussed, patient is agreeable with admission. Complex Multi-Symp Course/Dx Course Of Treatment: Patient is a 68 y/o M presenting to ED via EMS with complaints of right foot swelling and pain, abdominal pain, as well as left- sided jaw pain. He states that two weeks ago, he had right foot pain and swelling onset. Patient was evaluated at urgent care, x-ray and US was done. Patient was advised to come to [facility] for further evaluation. However, when patient arrived to [facility], he was disagreeable with blood work and decided to leave. Patient later went to [facility] where he states that he had an MRI of his foot and was found to have an abscess in his foot. He was started on antibiotics, but states that his foot Sx have returned and he is concerned that the antibiotics have been ineffective. Patient additionally recently went to the dentist and states that he has a "hole" at the left side of his mouth. He states that he has drainage from this area and reports that he has abdominal pain as a result of swallowing this drainage. Pain had exacerbated in the past few days. Patient was evaluated by Dr. Roman today, who advised the patient to come to the ED for workup. PMHx of diabetes, patient is on gabapentin and metoformin. He also reports that he has a VERMA at present. On physical exam, patient is noted to be edentulous, no thrush in mouth, no swelling or masses in mouth. There is swelling and redness with mild warmth extending from great toe on right to medial aspect of the foot; there are no draining lesions, no pointing or fluctuance, no lymphangitic streaking. Bloodwork done, abnormal labs include MPV 7.2, glucose 213, POC glucose 208, alk phos 155, CRP 13.95. Trop was negative, lactic was 1.1. UA showed 2+ glucose. During ED course, patient received insulin regular, 18 units SUBCUT and insulin Nph, 40 units SUBCUT, and Tylenol 975 mg PO. CXR and right foot X-ray showed no acute process. MAXILLOFACIAL CT IMPRESSION: Distention of the left parotid duct. The appearance of the left parotid gland. appears smaller than the right. No focal mass within the parotid gland. Recommend further assessment of the buccal mucosa. No obvious distal parotid. duct stone. Results and labs discussed, patient is agreeable with admission. Patient's case was discussed with Dr. Hall, Dr. Hall accepts the patient for admission. - Diagnoses Provider Diagnoses: Cellulitis of right foot - Physician Notifications Discussed Care Of Patient With: Serenity Hall Time Discussed With Above Provider: 23:14 Instructed by Provider To: Other - Patient's case was discussed with Dr. Hall , Dr. Hall accepts the patient for admission. Discharge ED - Sign-Out/Discharge Documenting (check all that apply): Patient Departure - admit Patient Received Moderate/Deep Sedation with Procedure: No - Discharge Plan Condition: Stable Disposition: ADMITTED TO [facility] - Billing Disposition and Condition Condition: STABLE Disposition: Admitted to [facility] - Attestation Statements Document Initiated by Scribe: Yes Documenting Scribe: VARUN BRIGGS Provider For Whom Sandrae is Documenting (Include Credential): JOSELYN HERNÁNDEZ MD Scribe Attestation: VARUN Jiang, scribed for JOSELYN HERNÁNDEZ MD on 02/13/19 at 1938. Scribe Documentation Reviewed: Yes Provider Attestation: The documentation as recorded by the scribe, VARUN BRIGGS accurately reflects the service I personally performed and the decisions made by me, JOSELYN HERNÁNDEZ MD Status of Scribe Document: Viewed
[2019-02-12] MEDS ORDERED: Insulin REGULAR(*) 1 UNITS UNIT SUBCUT ONE (20:20)
[2019-02-12] MEDS ORDERED: Insulin NPH(*) 1 UNITS UNIT SUBCUT ONE (20:21)
[2019-02-12 20:39] LABS: ABS Basophils 0.1 10^3/ul (0-0.2); ABS Eosinophils 0.2 10^3/ul (0-0.6); ABS Monocytes 0.4 10^3/ul (0-0.8); ABS Neutrophils 3.5 10^3/ul (1.5-7.7); Eosinophil % 2.7 %; Hematocrit 42 % (42-52); Hemoglobin 14.2 g/dL (14.0-18.0); Lymphocyte % 32.3 %; Mean Corpuscular HGB Conc 34 g/dL (31-36); Mean Corpuscular Hemoglobin 29 pg (27-31); Mean Corpuscular Volume 84 fL (80-94); Mean Platelet Volume 7.2 fL (7.4-10.4); Platelet Count 191 10^3/uL (150-450); Red Blood Count 4.97 10^6 /uL (4.18-5.48); Red Cell Distribution Width 13 % (10-15); White Blood Count 6.2 10^3/uL (3.5-10.8)
[2019-02-12 20:57] LABS: Troponin I 0.01 ng/mL (<0.04)
[2019-02-12 20:59] LABS: Albumin 3.8 g/dL (3.2-5.2); BUN/Creatinine Ratio 14.7 (8-20); C Reactive Protein 13.95 mg/L (<8.01); Calcium 9.3 mg/dL (8.6-10.3); EGFR African American 88.4 (>60); EGFR Non-African American 73.1 (>60); Globulin 3.9 g/dL (2-4); Potassium 4.5 mmol/L (3.5-5.0); Total Bilirubin 0.4 mg/dL (0.2-1.0); Total Protein 7.7 g/dL (6.4-8.9)
[2019-02-12] MEDS ORDERED: Iodixanol* (CONTRAST) 320 MG/ML 100 ML SDV IV ONE (21:05)
[2019-02-12 21:32] LABS: Urine Appearance Clear; Urine Bilirubin Negative (Negative); Urine Blood Negative (Negative); Urine Color Yellow; Urine Glucose 2+(150 mg/dL) (Negative); Urine Ketones Negative (Negative); Urine Nitrite Negative (Negative); Urine Protein Negative (Negative); Urine Specific Gravity 1.012 (1.010-1.030); Urine Urobilinogen Negative (Negative)
[2019-02-12] MEDS ORDERED: Acetaminophen TAB* 325 MG PO ONE (23:15)
[2019-02-12] MEDS ORDERED: Acetaminophen TAB* 325 MG PO PRN (23:53)
[2019-02-13] MEDS ORDERED: Piperacillin/Tazobac ADVAN(*) 3.375 GM in NS 0.9% 100 ML* 100 ML IVPB ONE (00:02)
[2019-02-13] MEDS ORDERED: Lisinopril TAB* 5 MG PO ONE (00:03)
[2019-02-13] MEDS: Enoxaparin(*) 40 MG/0.4 ML SYR SUBCUT SCH ×2 (00:20→08:59)
[2019-02-13] MEDS ORDERED: Zosyn per Pharmacy* NOTE FOLLOW UP SCH (01:00)
[2019-02-13] MEDS: oxyCODONE/Acetamin 5/325 MG* TAB PO PRN ×3 (01:25→13:18)
--- NOTE | 2019-02-13 03:37 | HP ---
CC: Dr. Jack Roman * HISTORY AND PHYSICAL: DATE OF ADMISSION: 02/12/19 PRIMARY CARE PROVIDER: Jack Roman MD ATTENDING PHYSICIAN: Serenity Hall DO * (dictated by Carolynn Rogers NP) CHIEF COMPLAINT: Left jaw pain. HISTORY OF PRESENT ILLNESS: Mr. Collier is a 68-year-old male with past medical history of diabetes, PVD, and hypertension who presents to the emergency room today with multiple complaints. The patient was recently hospitalized at [facility] for 1 to 2 weeks for a right diabetic foot infection. He reports that during that hospital stay, he had an MRI of the right foot, which showed an abscess but no osteomyelitis. He was treated while there in the hospital and discharged last Saturday to complete a prescription of cephalexin. The patient has been taking those antibiotics as prescribed. He is very adamant that he is not here in the emergency room today because of the right foot infection. He did see a nurse practitioner at his PCP's office today. His main complaint there was left maxillary pain. The patient reports that for the last 3 to 4 years, he has had ill-fitting dentures, which has been rubbing "a hole" on the left upper side of his mouth. He reports that there was some concern from the PCP that there may be some sort of mass in the area and so that was why he was sent to the emergency room for further evaluation. The patient also reports difficulty swallowing for quite a number of years. He reports gagging quite often and a "itchy" sensation in his throat. He is concerned because he had a brother who from esophageal and gastric cancer. He was scheduled for an EGD and a colonoscopy last week, so missed those appointments when he was hospitalized at [facility]. He denies any fevers, chest pain, cough, shortness of breath, nausea, vomiting, diarrhea, or other rashes or lesions. In the emergency room, the patient had lab work, which was mostly unremarkable. He was noted to be hypertensive with systolic pressures up into the 170s; the vitals were otherwise stable. He had a maxillofacial CT, which did show some distention of the left parotid duct, but no focal masses and no obvious duct stones. While in the emergency room, he does admit that the right great toe appears more edematous and "pink" than it did a few days ago and when he was discharged from [facility]. Because of the concern for worsening diabetic foot infection, the hospitalist service was asked to evaluate for admission. PAST MEDICAL HISTORY: 1. Diabetes mellitus type 2. 2. Peripheral vascular disease. 3. Hypertension. PAST SURGICAL HISTORY: 1. Knee surgery. 2. Left eye surgery after injury. HOME MEDICATIONS: 1. Aspirin 81 mg p.o. daily. 2. Cephalexin 500 mg p.o. 4 times a day. 3. Gabapentin 300 mg p.o. t.i.d. 4. Novolin N 50 units subcu every morning. 5. Novolin N 40 units subcu at bedtime. 6. Novolin R 18 units subcu b.i.d. 7. Lisinopril 5 mg p.o. daily. 8. Metformin 500 mg p.o. b.i.d. ALLERGIES: No known drug allergies. FAMILY HISTORY: The patient's father at age 58 of pneumonia. His mother at age 86 of unknown causes. He had a brother who of esophageal and gastric cancer. SOCIAL HISTORY: The patient reports quitting smoking in 2011, though has a 25- year smoking history. He denies any alcohol or recreational drug use. He is unemployed. He lives at home with his , Sasha, who will be his surrogate decision maker in the event he is unable to make his own decisions. REVIEW OF SYSTEMS: An 11-point review of systems was performed and all the pertinent positive and negative findings are in the HPI. All other systems are negative. PHYSICAL EXAMINATION GENERAL: Mr. Collier is a well-developed, well-nourished, white male, lying in bed, in no acute distress. He appears his stated age. VITAL SIGNS: Temp 97.3, heart rate 91, respiratory rate 16, oxygen saturation 96 % on room air, blood pressure 163/66. HEENT: Head is atraumatic, normocephalic. Visual perez are grossly intact. Pupils are equal, round, and reactive to light and accommodation. Extraocular movements are intact. Oral mucous membranes moist. There is tenderness to palpation over the left zygomatic bone, though no appreciable mass. NECK: Trachea midline. No lymphadenopathy. RESPIRATORY: Symmetrical chest expansion. No chest wall deformities. Lungs are clear to auscultation throughout. No rhonchi, wheezes, or rubs. CARDIOVASCULAR: Regular rate and rhythm. S1, S2 present. No murmurs, rubs, or gallops. No JVD. ABDOMEN: Soft. Mildly tender to palpation throughout. Bowel sounds are normoactive. EXTREMITIES: Skin warm and smooth bilaterally. There is brown discoloration to bilateral lower extremities. Pedal pulses 2+ bilaterally. NEURO: Awake, alert, and oriented x4. Cranial nerves II through XII are grossly intact. Moves all extremities. SKIN: There is a moderate nonpitting edema to the right great toe and erythema encompassing the right great toe, though this does not extend significantly on to the foot or other toes. There is a pinpoint abrasion to the dorsal foot directly underneath the great toe. DIAGNOSTIC STUDIES AND LABORATORY DATA: WBC 6.2, RBC 4.97, hemoglobin 14.2, hematocrit 42, platelets 191. Sodium 138, potassium 4.5, chloride 102, carbon dioxide 31, BUN 15, creatinine 1.02, glucose 213. Lactic acid 1.1. Troponin 0.01. CRP 13. Urinalysis remarkable for glucose. Maxillofacial CT reads as distention of the left parotid duct. The appearance of the left parotid gland appears smaller than the right. No focal mass within the parotid gland. Recommend further assessment of the buccal mucosa. No obvious distal parotid duct stone. Chest x-ray to my read shows no active cardiopulmonary disease. Radiologist's report is pending. Right foot x-ray completed with radiology, report pending. ASSESSMENT AND PLAN: Mr. Collier is a 68-year-old male with past medical history of diabetes, peripheral vascular disease, and hypertension who presents to the emergency room today with complaints of left facial pain, though was found to have worsening cellulitis of the right foot. The patient will be admitted in observation for: 1. Right foot cellulitis. The patient was recently treated at [facility] for this right foot cellulitis. He did have an MRI at that time. Records have been requested from [facility], which were reportedly received, although I was not able to find these records, so this will need to be readdressed in the morning. Regardless, the patient was sent home from [facility] with a prescription for cephalexin, which he has been taking as prescribed, though now the right great toe appears more edematous and to have more erythema than within the last couple of days, so it appears as though he failed outpatient therapy. I have placed the patient on Zosyn. Reportedly, the culture from [facility] grew MSSA, so I do not think it is necessary to cover for MRSA at this time and there is no wound that can be cultured at this point. An infectious disease consult could be considered later during this hospital stay. 2. Left facial pain. This is a longstanding problem that the patient has had over the last 3 to 4 years and it sounds like this problem is simply due to ill- fitting dentures. The patient was not able to open his mouth sufficiently for me to exam due to pain, though the CT did not have any particularly remarkable findings. The patient will need to follow up with a dentist after discharge. 3. Dysphagia. The patient also reports years of difficulty swallowing where he feels like food is getting stuck in his esophagus. Again, he was scheduled for an outpatient EGD, which was canceled due to his hospitalization in [facility]. At this point, I have ordered a swallow evaluation by Speech Therapy, though there is otherwise no need for any acute inpatient evaluation of this chronic issue. 4. Diabetes. The patient's glucose was elevated in the emergency room and he was given his home doses of insulin. I will continue him on his usual regular and NPH insulin dosing as well as his metformin. 5. Hypertension. The patient is hypertensive in the emergency room with systolic pressures up into the 170s. I have ordered an additional 5 mg of lisinopril tonight and have increased his lisinopril dosing to 10 mg beginning tomorrow. 6. FEN: The patient does not require any fluid resuscitation or electrolyte repletion. I have ordered a consistent carb diet. 7. Code status: The patient does wish to be a DNR and I did fill out a MOLST form with the patient at the bedside which I placed on the chart in the emergency room. 8. DVT prophylaxis: According to the DVT Risk Assessment, the patient scores a 3 putting him at high risk. I have ordered Lovenox. TIME SPENT: Approximately 60 minutes was spent on this admission, greater than half of that time spent [id number] with the patient obtaining my history, performing my physical exam, and reviewing the plan of care. This case has been reviewed with my attending, Dr. Hall, who is in agreement with the plan of care. CAROLYNN ROGERS, [employer]EVER[employer] SALES CONSULTANT [id number]/[facility] #: [id number] [facility]OSPITALDanisha
[2019-02-13] MEDS ORDERED: ZOSYN 3.375 GM Q8H per EXTENDED INFUSION IVPB SCH ×2 (05:30)
[2019-02-13 06:32] LABS: ABS Basophils 0.1 10^3/ul (0-0.2); ABS Eosinophils 0.2 10^3/ul (0-0.6); ABS Lymphocytes 2.3 10^3/ul (1.0-4.8); ABS Monocytes 0.5 10^3/ul (0-0.8); ABS Neutrophils 3.1 10^3/ul (1.5-7.7); Eosinophil % 3.1 %; Hematocrit 38 % (42-52); Hemoglobin 13.1 g/dL (14.0-18.0); Mean Corpuscular HGB Conc 35 g/dL (31-36); Mean Corpuscular Hemoglobin 29 pg (27-31); Mean Corpuscular Volume 84 fL (80-94); Mean Platelet Volume 7.4 fL (7.4-10.4); Platelet Count 163 10^3/uL (150-450); Red Blood Count 4.51 10^6 /uL (4.18-5.48); Red Cell Distribution Width 13 % (10-15); White Blood Count 6.2 10^3/uL (3.5-10.8)
[2019-02-13 07:00] LABS: Calcium 8.8 mg/dL (8.6-10.3); EGFR African American 90.5 (>60); EGFR Non-African American 74.8 (>60); Potassium 3.8 mmol/L (3.5-5.0)
[2019-02-13] MEDS: Gabapentin CAP(*) 300 MG PO SCH ×2 (08:50→13:19)
[2019-02-13] MEDS ORDERED: Dextrose 50% VIAL 50 ml IV PUSH PRN (08:58)
[2019-02-13] MEDS ORDERED: Lisinopril TAB* 5 MG PO SCH (09:00)
[2019-02-13] MEDS ORDERED: Insulin NPH(*) 1 UNITS UNIT SUBCUT SCH ×2 (09:00→21:00)
[2019-02-13] MEDS ORDERED: Aspirin 81 mg CHEW TAB* 81 MG TAB.CHEW PO SCH (09:00)
[2019-02-13] MEDS ORDERED: metFORMIN* 500 MG TAB PO SCH (09:00)
[2019-02-13] MEDS ORDERED: Insulin REGULAR(*) 1 UNITS UNIT SUBCUT SCH (09:00)
[2019-02-13] MEDS ORDERED: Lisinopril TAB* 10 MG PO SCH (09:00)
[2019-02-13] MEDS ORDERED: Insulin LISPRO* 1 UNITS UNIT SUBCUT SCH (11:30)
[2019-02-13] MEDS ORDERED: ceFAZolin 1 GM ADVAN(*) 1 GM in NS 0.9% 50 ML* 50 ML IVPB SCH (12:00)
--- NOTE | 2019-02-13 12:34 | CONS ---
CONSULTATION REPORT: DATE OF CONSULT: 02/13/19 PRIMARY CARE PROVIDER: Dr. Jack Roman. PROVIDER REQUESTING CONSULTATION: Marlen Castillo NP CONSULTING SERVICE: Infectious Disease. PROVIDER: Mary Banks NP. ATTENDING PROVIDER: Dr. Darren Morales* (dicated by Mary Banks NP). REASON FOR CONSULT: Right foot cellulitis and diabetic ulcer. IMPRESSION: 1. Right foot cellulitis and diabetic ulcer. While at [facility], he had an MRI showing peritoneal infection with small abscess of the first toe, no osteomyelitis and flexor hallucis longus tenosynovitis. A would culture from [facility] grew methicillin-susceptible Staphylococcus aureus. Podiatry performed a bedside I+D while at [facility]. The patient reports completing a course of Keflex yesterday. He had ABIs while in [facility] showing mild disease on the right. The patient is afebrile, has no leukocytosis. There is no erythema or warmth to the foot. At this time, there is just slight edema to the right first toe and then to the foot. His CRP is 13.95. 2. Diabetes mellitus, type 2. Uncontrolled. According to [facility] records, his hemoglobin A1c is over 11. PLAN/RECOMMENDATIONS: Recommend obtaining an MRI to evaluate for abscess. If patient does in fact still have an abscess, recommend consulting orthopedic surgery to have this washed out. Discontinue Zosyn and start Ancef 1gm IV every 8 hours. If there is no abscess or signs of osteomyelitis, he could be discharged on a 7-10 course of Keflex and followup with ID outpatient next week. HISTORY OF PRESENT ILLNESS: Mr. Collier is a 68-year-old male with past medical history significant for diabetes mellitus, type 2; peripheral vascular disease; hypertension; diabetic neuropathy, who previously reported to the ER around 01/27/19 and then left and presented to [facility], where he was admitted for redness to his right first toe that he reported had been present for approximately 3 days prior to his presentation. While in [facility], he was initially placed on vancomycin and Zosyn. He was seen by Podiatry, who debrided diabetic ulcer on the plantar aspect of his right first toe. He reports this had some purulent drainage. A culture was obtained during that time. Additionally, he had an MRI showing peritoneal infection with a small abscess of the first toe. No osteomyelitis and flexor hallucis longus tenosynovitis. He was additionally seen by the infectious disease service and his wound culture had returned with MSSA and he was switched to cefazolin. The foot continued to have gradual improvement in pain and swelling. He also had POLLO showing mild disease on the right and he was discharged from [facility] on 02/02/19 with another week of Keflex. The patient states that at the time of his presentation to [facility], he was having fevers and chills. Since being home, he denies any fevers, chills, nausea, vomiting, diarrhea, urinary symptoms recent travel. Reports that occasionally the right first toe appears to have a pink discoloration and this improves when his foot has been up. Additionally, he reports neuropathy almost to his knees bilateral. Yesterday, he was seen in followup by his primary care provider and was reporting headache and jaw pain, which he states the pain has been present for few years. He feels that it is his ill-fitting dentures, but due to these complaints, he was sent to the emergency room for further evaluation of this. While in the emergency room, he was noted to have erythema to his right first toe and was felt to have possible cellulitis that had not improved on the previous treatment. While in the emergency room, he had no leukocytosis. CRP slightly elevated at 13.95. He has been afebrile. He did have a foot x-ray while in the emergency room. While in the hospital, he remained afebrile, continues to have no leukocytosis. The mild erythema to the right first toe has resolved. He denies fever, chills , nausea, vomiting, diarrhea, urinary symptoms, recent travel. He does have neuropathy to bilateral lower extremities. PAST MEDICAL HISTORY: 1. Diabetes mellitus, type 2. 2. Peripheral vascular disease. 3. Hypertension. 4. Diabetic peripheral neuropathy. PAST SURGICAL HISTORY: 1. Status post knee surgery. 2. Status post left eye surgery. MEDICATIONS: Home medications: 1. NovoLog insulin 18 units subcutaneous twice daily. 2. Aspirin 81 mg by mouth daily. 3. Metformin 500 mg by mouth twice daily. 4. Lisinopril 10 mg by mouth daily. 5. Gabapentin 300 mg by mouth 3 times daily. 6. Keflex 500 mg by mouth 4 times daily, completed this yesterday. 7. NovoLog insulin 50 units subcutaneous in the morning and 40 units subcutaneous at bedtime. Hospital medications: 1. Acetaminophen 650 mg by mouth every 4 hours as needed for fever or pain. 2. Aspirin 81 mg by mouth daily. 3. Dextrose 25 mL IV for glucose less than 60 as needed. 4. Lovenox 40 mg subcutaneous every day. 5. Neurontin 30 mg by mouth 3 times daily. 6. Humalog insulin sliding scale subcutaneous with meals and at bedtime. 7. NPH insulin 32 units subcutaneous at bedtime and 40 units subcutaneous in the morning. 8. Lisinopril 10 mg by mouth daily. 9. Metformin 500 mg by mouth twice daily. 10. Percocet 5/325, 1 tablet by mouth every 4 hours as needed for pain. ALLERGIES: No known drug allergies. FAMILY HISTORY: Denies family history of recurrent or resistant infections. Father passed at age 58 due to complications of pneumonia. Mother passed at age 86 of unknown cause. He reports she was healthy and did not see doctors. Denies family history of coronary artery disease. Brother with a history of borderline diabetes. Brother with history of colon cancer and brother passed from esophageal and gastric cancer. SOCIAL HISTORY: Denies alcohol, recreational drug use. He is a former smoker, quitting in 2011. Prior to that he had 25-year smoking history. REVIEW OF SYSTEMS: I performed a 10-point review of systems. All the pertinent positives and negatives are mentioned in the history of present illness. The remaining review of systems are negative. PHYSICAL EXAM: Vital Signs: Temperature 96.4, heart rate is 79, respiratory rate 19, O2 sat 100% on room air, blood pressure 165/77. General Appearance: Alert, pleasant, appears to be in no acute distress, sitting up on the side of the bed. Head: Normocephalic, atraumatic. Pupils are equal and reactive to light. No subconjunctival hemorrhage. Neurological: Alert and oriented x4. Cranial nerves II through XII are grossly intact. Cardiovascular: Regular rate and rhythm. S1, S2 present. No murmurs, rubs, or gallops heard. Respiratory: No accessory muscle use. Lungs: Clear to auscultation bilateral. Abdomen: Bowel sounds are present. Abdomen: Large, soft, nontender. Extremities: No lower extremity edema. Weak right lower extremity DP. There is slight edema to the right first toe and into the forefoot. Musculoskeletal: No clubbing or cyanosis. The patient exhibits good strength in all extremities. He is noted to have peripheral neuropathy to below his knees. Psychological: Calm and cooperative. Skin: No rashes. There is small scabbed diabetic ulcer to the plantar aspect of the right first toe. There is no erythema. No drainage from this area. There is also a callus to the distal aspect of the right second toe. There are chronic skin changes/dark discoloration to bilateral lower extremities. DIAGNOSTIC STUDIES/LAB DATA: Sodium 139, potassium 3.8, chloride 105, CO2 of 28. BUN 15, creatinine 1, glucose 102. White blood cell count 6.2, hemoglobin 13.1, hematocrit 38, platelet count 163. CRP is 13.95. Please see impression and recommendations outlined above. Recommendations have been discussed with Marlen Castillo NP Thank you for asking us to see Mr. Collier in consultation. The case has been reviewed with my attending, Dr. Darren Morales, who agrees with the plan of care. Reviewed by GOGO BUCHANAN 02/17/19 [id number]/[facility] #: [id number] MTDDanisha
[2019-02-13 15:51] VITALS: BP 157/72
--- NOTE | 2019-02-13 21:41 | DS ---
CC: Dr. Roman* DISCHARGE SUMMARY: DATE OF ADMISSION: 02/13/19 DATE OF DISCHARGE: 02/13/19 PRIMARY CARE PROVIDER: Dr. Roman. ATTENDING PHYSICIAN: Dr. Romero* (dictated by Venkatesh Montes De Oca NP). PRIMARY DIAGNOSES: 1. Left jaw pain. 2. Right foot cellulitis. SECONDARY DIAGNOSES: 1. Diabetes, type 2. 2. Peripheral vascular disease. 3. Hypertension. CONSULTATIONS WHILE IN THE HOSPITAL: Mary Jean NP, Infectious Disease. STUDIES WHILE IN THE HOSPITAL: 1. Maxillofacial CT: Impression: Distention of the left parotid duct. The appearance of the left parotid gland appears smaller than the right. No focal mass within the parotid gland. Recommend further assessment of the buccal mucosa. No obvious distal parotid duct stone. 2. Chest x-ray: No acute cardiopulmonary disease. 3. Foot x-ray: No fracture of the right foot is noted. No evidence of lucency is noted in the right great toe. 4. Lower extremity MRI: No drainable fluid collections are noted. There is bone marrow edema in the distal phalanx of the great toe. This may represent reactive bone changes or a resolving osteomyelitis. DISCHARGE HOME MEDICATIONS: Continued home medications: 1. Aspirin 81 mg p.o. daily. 2. Gabapentin 300 mg p.o. t.i.d. 3. NovoLog N 50 units subcu every morning. 4. NovoLog N 40 units subcu at bedtime. 5. Novolin R 18 units subcu b.i.d. 6. Lisinopril 5 mg p.o. daily. 7. Metformin 500 mg p.o. b.i.d. New home medications: 1. Keflex 500 mg p.o. t.i.d. x10 days. 2. Percocet 5/325 mg 1 tab q.8 hours p.r.n. pain, MDD 3. Dispensed 5 days worth. HISTORY OF PRESENT ILLNESS/HOSPITAL COURSE: Mr. Collier is a 68-year-old male with a past medical history significant for diabetes, PVD, hypertension, who presented to the emergency room today with multiple complaints. Please see history and physical dictated by Carolynn Rogers NP for complete summary of events leading up to the hospitalization, but in short, the patient reports left jaw pain, which he attributes to ill-fitting dentures. He had worsening diabetic foot infection. While in the emergency room; however, the patient had lab work, which was mostly unremarkable. He was mildly hypotensive. He had a maxillofacial CT, which was fairly unremarkable. His right great toe was evaluated as he was recently discharged from [facility] where he spent 1 week for antibiotics for a right toe cellulitis. The patient reported that it appeared to be more edematous and "pink" than it had in previous days. Therefore, the patient was admitted in the hospital for further evaluation. During this hospital stay, the patient has had no leukocytosis. His electrolytes have been within normal limits. His C-reactive protein is fairly unremarkable at 13.95. He has been afebrile. He has had no tachycardia. He has had no tachypnea. He was evaluated by Mary Banks from Infectious Disease. She recommended obtaining an MRI to evaluate for abscess and if he had no abscess or signs of osteomyelitis, he could be discharged with 7 to 10 days of Keflex with close followup with ID. Therefore, the patient underwent MRI and there were no signs of abscess or osteomyelitis. MRI also reviewed by Mary Jean, M[employer]. Plan was made for the patient to be discharged with p.o. antibiotics and followup. The patient is stable for discharge home. Vital Signs: Temp 98.1, HR 83, RR 20, O2 saturation 100% on room air, BP 167/ 72. REVIEW OF SYSTEMS: He still reports left mouth pain. The patient denies chest pain, palpitations, shortness of breath, nausea, vomiting, fever, chills. A 14 - point review of systems was completed and all were negative. PHYSICAL EXAM: General: Mr. Collier is a 68-year-old male, who is lying in bed. He appears to be in no acute distress. Appears his stated age. HEENT: Eyes clear without icterus. PERRLA. Oral mucosa is moist without lesions. Posterior pharynx is clear. Neck: Supple. No lymphadenopathy. Respiratory: Lungs are clear to auscultation. No wheezes, rhonchi or rubs. Good aeration. Cardiac: S1, S2 present. Regular rate and rhythm. No murmurs, rubs, or gallops. Abdomen: Soft, nontender. Bowel sounds normoactive. Extremities: No edema. No clubbing or cyanosis. Pedal pulses 2+ bilaterally. Musculoskeletal: No pain or deformities. Skin: The patient's right great toe shows no signs of discoloration such as pink or red, no open areas, no warmth, no streaking. The patient did have redness marked in the emergency room and it has greatly receded as it has improved. Remainder of the skin has been dry and intact. LABORATORY DATA: Sodium 139, potassium 3.8, chloride 105, carbon dioxide 28, BUN 15, creatinine 1.00, glucose 102. WBC 6.2, hemoglobin 13.1, hematocrit 38, platelets 163. DISCHARGE PLAN/FOLLOWUP: 1. Right foot cellulitis: The patient will be discharged home with Keflex 500 mg t.i.d. x10 days. The patient has been referred to Dr. Morales's office in 4 to 7 days. The patient has been educated on signs and symptoms of new or worsening condition and when to return to the emergency department. The patient stated understanding. 2. Left jaw pain. The patient reports his left jaw pain has been present for several years, but he has not gone to a dentist as does not have dental insurance. The patient has been provided by [employer] with names of local dentists. The patient should follow up with a dentist as an outpatient. He has been educated on signs and symptoms or new or worsening condition and when to return to the emergency department. The patient should also follow up with is PCP early next week. 3. Diabetes: The patient should continue his home regimen. 4. Peripheral vascular disease. The patient should continue his aspirin. 5. Hypertension. The patient should continue his lisinopril 5 mg p.o. daily. He was slightly hypertensive here while inpatient, but since it was less than 24 hours, I think it would be best if the patient follows up with his primary care next week for dosing adjustments as his hypertension could have been transient here given pain and acute illness. 6. Followup: The patient should follow up with his primary care early next week. The patient should follow up with Dr. Darren Morales in 4 to 7 days. The patient should follow up with GI for an endoscopy as previously planned. 7. Education: The patient was educated on signs and symptoms of new or worsening conditions and when to return to the emergency department. The patient stated understanding. This is a summarized report of a complex medical history and hospital stay. For further details, please see entire medical record. TIME SPENT: Approximately 40 minutes was spent on this discharge, greater than half that time was spent [id number] with the patient discussing discharge plans and instructions. Reviewed by VENKATESH MONTES DE OCA NP 02/23/19 @ 2136 [id number]/[facility] #: [id number] MTDD
== END 2019-02-13 18:20 | disposition home or self-care (01) ==
LOC: ED 19:44 → MED 23:53
PROVIDERS: ADMIT Nurse Practitioner Family; ATTEND Internal Medicine
DX: R68.84 Jaw pain (principal); L03.115 Cellulitis of right lower limb; E11.9 Type 2 diabetes mellitus without complications; I73.9 Peripheral vascular disease, unspecified; I10 Essential (primary) hypertension; R51 Headache; Z79.82 Long term (current) use of aspirin; Z79.899 Other long term (current) drug therapy; Z79.84 Long term (current) use of oral hypoglycemic drugs; R60.0 Localized edema; Z87.891 Personal history of nicotine dependence
CPT/HCPCS: 36415; 70487; 71046; 80048; 80053; 81003; 83605; 84484; 85025; 86140; 96365; 96367; 96372; 99283; A9270-GY; G0378; J0690; J1650; J2543; Q9967

== ENCOUNTER 2019-06-24 18:13 | Emergency (ER) | payer MEDICARE ==
--- NOTE | 2019-06-24 18:54 | ED ---
Substance Abuse/Use - HPI Summary HPI Summary: This patient is a 68 year old male accompanied by his presenting to [facility] with a chief complaint of substance-related altered mental status, medication reaction since 3 days ago. The patient states he started new sleep medication, Trazodone and he states he has started to hallucinate on the medication. He reports lower abdominal pain and diarrhea. Patient states he is scared, states she has never seen him like this before. The patient's PCP, Dr. Roman, prescribed the medication. He has a Hx of HTN, diabetes, anxiety, and depression. He has not been on any medications for anxiety or depression in the last 10 years. Medications reviewed, allergies noted. - History Of Current Complaint Chief Complaint: EDAltMentalStatus Stated Complaint: AMS PER PT Time Seen by Provider: 06/24/19 18:47 Hx Obtained From: Patient Overdose Characteristics: Oral - Allergies/Home Medications Allergies/Adverse Reactions: Allergies Allergy/AdvReac Type Severity Reaction Status Date / Time No Known Allergies Allergy Verified 06/24/19 18:30 PMH/Surg Hx/FS Hx/Imm Hx Endocrine/Hematology History: Reports: Hx Diabetes - iddm Denies: Hx Thyroid Disease Cardiovascular History: Denies: Hx Hypertension, Hx Pacemaker/ICD Respiratory History: Denies: Hx Asthma, Hx Chronic Obstructive Pulmonary Disease (COPD) GI History: Denies: Hx Ulcer Sensory History: Reports: Hx Contacts or Glasses - not with him, Other Sensory Impairments - neuropathy Denies: Hx Hearing Aid Opthamlomology History: Reports: Hx Contacts or Glasses - not with him, Other Sensory Impairments - neuropathy Neurological History: Reports: Other Neuro Impairments/Disorders - neuropathy Psychiatric History: Denies: Hx Panic Disorder - Surgical History Surgery Procedure, Year, and Place: Knee surgery, left eye popped out and put back in at age 18. Infectious Disease History: No Infectious Disease History: Denies: Hx Hepatitis, Hx Human Immunodeficiency Virus (HIV), Traveled Outside the [place] in Last 30 Days - Family History Known Family History: Positive: Diabetes - Social History Alcohol Use: None Substance Use Type: Reports: None Hx Tobacco Use: Yes Smoking Status (MU): Former Smoker Review of Systems Positive: Abdominal Pain, Diarrhea Neurological: Other - Altered mental status Psychological: Other - Hallucinations All Other Systems Reviewed And Are Negative: Yes Physical Exam - Summary Physical Exam Summary: Constitutional: Well-developed, Well-nourished, Alert. Patient crying in bed with eyes closed, periodically shakes his legs in an anxious faction, is redirectable. Skin: Warm, Dry HENT: Normocephalic; Atraumatic Eyes: Conjunctiva normal Neck: Musculoskeletal ROM normal neck. (-) JVD, (-) Stridor, (-) Tracheal deviation Cardio: Rhythm regular, rate normal, Heart sounds normal; Intact distal pulses; Radial pulses are 2+ and symmetric. (-) Murmur Pulmonary/Chest wall: Effort normal. (-) Respiratory distress, (-) Wheezes, (-) Rales Abd: Soft, (-) tenderness, (-) Distension, (-) Guarding, (-) Rebound Musculoskeletal: (-) Edema Lymph: (-) Cervical adenopathy Neuro: Alert, Oriented x3 Psych: Mood and affect Normal Triage Information Reviewed: Yes Vital Signs On Initial Exam: Initial Vitals Temp Pulse Resp BP Pulse Ox 98.2 F 87 18 164/95 99 06/24/19 18:23 06/24/19 18:23 06/24/19 18:23 06/24/19 18:23 06/24/19 18:23 Vital Signs Reviewed: Yes Procedures - Sedation Patient Received Moderate/Deep Sedation with Procedure: No Diagnostics - Vital Signs Vital Signs Temp Pulse Resp BP Pulse Ox 06/24/19 18:23 98.2 F 87 18 164/95 99 - Laboratory Result Diagrams: 06/24/19 19:04 06/24/19 19:07 Lab Statement: Any lab studies that have been ordered have been reviewed, and results considered in the medical decision making process. - CT Brain CT Interpretation Completed By: Radiologist Summary of CT Findings: No acute intracranial findings. ED Provider has reviewed this report. Abd/Pel CT Interpretation Completed By: Radiologist Summary of CT Findings: 1. Cholelithiasis. 2. No evidence of bowel obstruction. No signs of acute diveticulitis. No abnormal bowel wall thickening to suggest a colitis or enteritis. ED Provider has reviewed this report. Course/Dx - Course Course Of Treatment: Patient is here with feeling nervous and crying after starting trazodone. Patient's never had symptoms like this before. Patient has a history of depression but has been asymptomatic and off meds for roughly 10 years. Patient complained of lower abdominal pain so CT scan was ordered which showed no acute process. Patient had blood performed which is grossly unremarkable. Patient had negative CT scan of his brain. Patient was given Ativan and morphine with improvement in his symptoms. Patient was offered evaluation by the mental health team but wanted to try going home first. Patient red reflex symptoms that did not need emergent evaluation. Patient was discharged with Vistaril. - Diagnoses Provider Diagnoses: Medication side effect, Anxiety Discharge ED - Sign-Out/Discharge Documenting (check all that apply): Patient Departure - Discharge - Discharge Plan Condition: Stable Disposition: HOME Prescriptions: hydrOXYzine HCL TAB* [Atarax 25 MG TAB*] 25 mg PO TID PRN #12 tab PRN Reason: Anxiety Patient Education Materials: Anxiety (ED) Referrals: Jack Roman MD [Primary Care Provider] - Additional Instructions: Take your anxiety medications as prescribed. Return to the ED if you are experiencing thoughts of harming yourself or others, or any other concerning symptoms. - Billing Disposition and Condition Condition: STABLE Disposition: Home - Attestation Statements Document Initiated by Alfonsoibagustina: Yes Documenting Scribe: Johan Horta Provider For Whom Maya is Documenting (Include Credential): Nate Sanchez MD Scribe Attestation: Johan Jiang, scribed for Nate Sanchez MD on 06/24/19 at 2202. Scribe Documentation Reviewed: Yes Provider Attestation: The documentation as recorded by the Johan villafana accurately reflects the service I personally performed and the decisions made by me, Nate Sanchez MD Status of Scribe Document: Viewed
[2019-06-24] MEDS ORDERED: LORazepam INJ* 2 MG/ML 1 ML VIAL IV PUSH ONE (18:57)
[2019-06-24] MEDS ORDERED: Lorazepam PYXIS KEY PRN (18:57)
[2019-06-24 19:23] LABS: ABS Basophils 0.1 10^3/ul (0-0.2); ABS Eosinophils 0.1 10^3/ul (0-0.6); ABS Lymphocytes 2.1 10^3/ul (1.0-4.8); ABS Monocytes 0.7 10^3/ul (0-0.8); ABS Neutrophils 4.5 10^3/ul (1.5-7.7); Eosinophil % 1.8 %; Hematocrit 46 % (42-52); Hemoglobin 15.9 g/dL (14.0-18.0); Lymphocyte % 28.3 %; Mean Corpuscular HGB Conc 34 g/dL (31-36); Mean Corpuscular Hemoglobin 29 pg (27-31); Mean Corpuscular Volume 85 fL (80-94); Mean Platelet Volume 7.6 fL (7.4-10.4); Nucleated Red Blood Cells % 0.3; Platelet Count 217 10^3/uL (150-450); Red Blood Count 5.47 10^6 /uL (4.18-5.48); Red Cell Distribution Width 14 % (10-15); White Blood Count 7.5 10^3/uL (3.5-10.8)
[2019-06-24] MEDS ORDERED: Morphine 4 MG/ML VIAL (1 ml) 4 MG/ML VIAL IV ONE (19:57)
[2019-06-24 20:03] LABS: Albumin 3.8 g/dL (3.2-5.2); BUN/Creatinine Ratio 15.2 (8-20); Calcium 9.5 mg/dL (8.6-10.3); EGFR African American 79.4 (>60); EGFR Non-African American 65.6 (>60); Potassium 4.4 mmol/L (3.5-5.0); Total Bilirubin 0.6 mg/dL (0.2-1.0); Total Protein 7.8 g/dL (6.4-8.9)
[2019-06-24 20:05] LABS: Troponin I 0.02 ng/mL (<0.03)
[2019-06-24] MEDS ORDERED: Iodixanol* (CONTRAST) 320 MG/ML 100 ML SDV IV ONE (20:07)
[2019-06-24 20:13] LABS: Urine Appearance Clear; Urine Bilirubin Negative (Negative); Urine Blood 1+ (Negative); Urine Color Yellow; Urine Glucose 3+(>=500 mg/dL) (Negative); Urine Ketones Negative (Negative); Urine Nitrite Negative (Negative); Urine Protein 1+(30 mg/dL) (Negative); Urine Specific Gravity 1.024 (1.010-1.030); Urine Urobilinogen Negative (Negative)
[2019-06-24 20:26] LABS: Urine Benzodiazepine Screen None Detected (None Detect); Urine Opiates Screen None Detected (None Detect)
[2019-06-24 20:33] LABS: TSH (Thyroid Stimulating Horm) 1.16 mcIU/mL (0.34-5.60)
[2019-06-24 21:05] LABS: Urine Bacteria Absent (Absent); Urine Red Blood Cell Trace(0-2/hpf) (Absent); Urine White Blood Cell Absent (Absent)
[2019-06-24] MEDS ORDERED: hydrOXYzine HCL TAB* 25 MG PO ONE (21:35)
[2019-06-24 22:21] VITALS: BP 165/80
== END 2019-06-24 22:23 | disposition home or self-care (01) ==
LOC: ED 18:13
DX: F41.9 Anxiety disorder, unspecified (principal); T43.215A Adverse effect of selective serotonin and norepinephrine reuptake inhibitors, initial encounter; Y92.9 Unspecified place or not applicable; K80.20 Calculus of gallbladder without cholecystitis without obstruction; E11.9 Type 2 diabetes mellitus without complications; I10 Essential (primary) hypertension; Z87.891 Personal history of nicotine dependence
CPT/HCPCS: 36415; 70450; 74177; 80053; 80307; 81003; 81015; 84443; 84484; 85025; 93005; 96374; 96375; 99283; A9270-GY; J2060; J2270; Q9967